=== PATIENT | female | born 1960 | race Caucasian/White ===

== ENCOUNTER 2019-08-21 18:55 | Emergency (ER) | payer SELFPAY ==
--- NOTE | 2019-08-21 20:16 | RAD REPORT ---
EXAM DESCRIPTION: CT - Abdomen Pelvis Wo Contrast - 08/21/2019 8:06 pm CLINICAL HISTORY: left lateral labial (Hernia?) pain COMPARISON: No comparisons None. TECHNIQUE: Axial [address] imaging of the abdomen and pelvis was performed without IV contrast. No IV contrast was given because of allergy, abnormal renal function, patient refusal or physician re quest. No oral contrast. All CT scans are performed using dose optimization technique as appropriate and may include automated exposure control or mA/KV adjustment according to patient size. FINDINGS: No suspicious findings in the lung bases. The liver, spleen and pancreas show no suspicious findings on non-contrast imaging. Small gallstones are present within a contracted gallbladder. No biliary tree dilatation. No hydronephrosis or suspicious renal mass. No significant adrenal finding. Isodense renal masses an d pyelonephritis cannot be excluded in the absence of IV contrast. Partially filled urinary bladder s hows no suspicious finding. Uterus and ovaries show no suspicious findings for age. No pelvic floor laxity suspected. Vaginal vault is grossly normal on CT imaging. CT is limited along the pelvic floor. No inguinal hernia. No dilated bowel loops or bowel wall thickening. No active GI process identifiable. No free air, free fluid or inflammatory stranding. No hernia, mass or bulky lymphadenopathy. No suspicious bony findings. IMPRESSION: No pelvic floor laxity or hernia along the perineum or vaginal vault. No inguinal hernia . No acute GI process seen. No acute process suspected. Isodense masses and pyelonephritis are not e xcluded on noncontrast imaging. Cholelithiasis. Full assessment is limited is the absence of IV contrast.
--- NOTE | 2019-08-21 21:02 | EDPHYS ---
Physician Documentation [facility] Name: Maria M Main Age: 58 yrs Sex: Female : 1960 Arrival Date: 08/21/2019 Time: 19:03 Bed 26 Private MD: ED Physician Beltran Acosta HPI: 08/21 20:49 This 58 yrs old Female presents to ER via EMS with complaints of left kdr groin/labia pain. 20:49 The patient states that she has had a hernia since she was 15 y/o. She states that she kdr has had recent pain and bleeding in her left groin. Onset: The symptoms/episode began/occurred at an unknown time. Severity of symptoms: At their worst the symptoms were mild in the emergency department the symptoms have resolved. The patient has experienced similar episodes in the past, chronically. The patient has not recently seen a physician. Historical: - Allergies: 19:06 No Known Allergies; mg2 - Home Meds: 19:06 None [Active]; mg2 - PMHx: 19:06 Hernia; mg2 - PSHx: 19:06 None; mg2 - Immunization history:: Flu vaccine is not up to date. - Social history:: Smoking status: Patient uses tobacco products, 7 sticks a day, Patient uses alcohol, occasionally. Patient/guardian denies using street drugs, IV drugs. - Ebola Screening: : No symptoms or risks identified at this time. ROS: 20:49 Constitutional: Negative for fever, chills, and weight loss, Eyes: Negative for injury, kdr pain, redness, and discharge, ENT: Negative for injury, pain, and discharge, Neck: Negative for injury, pain, and swelling, Cardiovascular: Negative for chest pain, palpitations, and edema, Respiratory: Negative for shortness of breath, cough, wheezing, and pleuritic chest pain, Back: Negative for injury and pain, : Negative for injury, bleeding, discharge, and swelling, MS/Extremity: Negative for injury and deformity, Skin: Negative for injury, rash, and discoloration, Neuro: Negative for headache, weakness, numbness, tingling, and seizure activity. Psych: Negative for depression, anxiety, suicide ideation, homicidal ideation, and hallucinations, Allergy/Immunology: Negative for hives, rash, and allergies, Endocrine: Negative for neck swelling, polydipsia, polyuria, polyphagia, and marked weight changes, Hematologic/Lymphatic: Negative for swollen nodes, abnormal bleeding, and unusual bruising. 20:49 Abdomen/GI: Positive for left groin/labial pain . Exam: 20:49 Constitutional: This is a well developed, well nourished patient who is awake, alert, kdr and in no acute distress. Head/Face: Normocephalic, atraumatic. Eyes: Pupils equal round and reactive to light, extra-ocular motions intact. Lids and lashes normal. Conjunctiva and sclera are non-icteric and not injected. Cornea within normal limits. Periorbital areas with no swelling, redness, or edema. Neck: Trachea midline, no thyromegaly or masses palpated, and no cervical lymphadenopathy. Supple, full range of motion without nuchal rigidity, or vertebral point tenderness. No Meningismus. Chest/axilla: Normal chest wall appearance and motion. Nontender with no deformity. No lesions are appreciated. Cardiovascular: Regular rate and rhythm with a normal S1 and S2. No gallops, murmurs, or rubs. Normal PMI, no JVD. No pulse deficits. Respiratory: Lungs have equal breath sounds bilaterally, clear to auscultation and percussion. No rales, rhonchi or wheezes noted. No increased work of breathing, no retractions or nasal flaring. Abdomen/GI: Soft, non-tender, with normal bowel sounds. No distension or tympany. No guarding or rebound. No evidence of tenderness throughout. Back: No spinal tenderness. No costovertebral tenderness. Full range of motion. Female : Normal external genitalia. Skin: Warm, dry with normal turgor. Normal color with no rashes, no lesions, and no evidence of cellulitis. MS/ Extremity: Pulses equal, no cyanosis. Neurovascular intact. Full, normal range of motion. Neuro: Awake and alert, GCS 15, oriented to person, place, time, and situation. Cranial nerves II-XII grossly intact. Motor strength 5/5 in all extremities. Sensory grossly intact. Cerebellar exam normal. Normal gait. Psych: Awake, alert, with orientation to person, place and time. Behavior, mood, and affect are within normal limits. Vital Signs: 19:05 BP 134 / 89; Pulse 88; Resp 18; Temp 98.3; Pulse Ox 100% on R/A; Height 5 ft. 3 in. mg2 (160.02 cm); 21:21 BP 131 / 86; Pulse 87; Resp 17; Pulse Ox 100% on R/A; rv MDM: 20:49 Data reviewed: vital signs, nurses notes, radiologic studies. Counseling: I had a kdr detailed discussion with the patient and/or guardian regarding: the historical points, exam findings, and any diagnostic results supporting the discharge/admit diagnosis, radiology results, the need for outpatient follow up. 21:01 Patient medically screened. kdr 08/21 19:43 Order name: CT Abd/Pelvis - Without Contrast; Complete Time: 20:48 kdr Administered Medications: No medications were administered Disposition: 08/21/19 21:01 Discharged to Home. Impression: Left groin pain. - Condition is Stable. - Discharge Instructions: Musculoskeletal Pain. - Medication Reconciliation Form, Thank You Letter form. - Follow up: Private Physician; When: 2 - 3 days; Reason: If symptoms return, Further diagnostic work-up, Recheck today's complaints, Continuance of care, Re-evaluation by your physician. Signatures: Dispatcher [employer] EDMS Beltran Acosta MD MD kdr Jorge Alejandra, CLEVE RN mg2 Dionisio Buchanan RN RN rv Corrections: (The following items were deleted from the chart) 21:21 21:01 08/21/2019 21:01 Discharged to Home. Impression: Left groin pain. Condition is rv Stable. Forms are Medication Reconciliation Form, Thank You Letter, Antibiotic Education, Prescription Opioid Use. Follow up: Private Physician; When: 2 - 3 days; Reason: If symptoms return, Further diagnostic work-up, Recheck today's complaints, Continuance of care, Re-evaluation by your physician. kdr
--- NOTE | 2019-08-21 21:02 | ER ---
Nurse's Notes [facility] Name: Maria M Main Age: 58 yrs Sex: Female : 1960 Arrival Date: 08/21/2019 Time: 19:03 Bed 26 Private MD: Diagnosis: Left groin pain Presentation: 08/21 19:03 Presenting complaint: EMS states: patient lives in [facility], she is here for her mg2 left inguinal hernia that hurts a lot. Transition of care: [facility]. Onset of symptoms was July 2019. Risk Assessment: Do you want to hurt yourself or someone else? Patient reports no desire to harm self or others. Initial Sepsis Screen: Does the patient meet any 2 criteria? No. Patient's initial sepsis screen is negative. Does the patient have a suspected source of infection? No. Patient's initial sepsis screen is negative. Care prior to arrival: None. 19:03 Method Of Arrival: EMS: [facility] mg2 19:03 Acuity: TYLER 4 mg2 Historical: - Allergies: 19:06 No Known Allergies; mg2 - Home Meds: 19:06 None [Active]; mg2 - PMHx: 19:06 Hernia; mg2 - PSHx: 19:06 None; mg2 - Immunization history:: Flu vaccine is not up to date. - Social history:: Smoking status: Patient uses tobacco products, 7 sticks a day, Patient uses alcohol, occasionally. Patient/guardian denies using street drugs, IV drugs. - Ebola Screening: : No symptoms or risks identified at this time. Screenin:55 Abuse screen: Denies threats or abuse. Denies injuries from another. Nutritional mg2 screening: No deficits noted. Tuberculosis screening: No symptoms or risk factors identified. Fall Risk Gait- Weak (10 pts.). Assessment: 19:53 General: Appears in no apparent distress. comfortable, Behavior is calm, cooperative. mg2 Pain: Complains of pain in left inguinal area. Neuro: Level of Consciousness is awake, alert, obeys commands, Oriented to person, place, time, situation. Cardiovascular: Capillary refill < 3 seconds Patient's skin is warm and dry. Respiratory: Airway is patent Respiratory effort is even, unlabored, Respiratory pattern is regular, symmetrical. GI: No deficits noted. : Reports pain in left inguinal area. EENT: No signs and/or symptoms were reported regarding the EENT system. Derm: Skin is intact, is healthy with good turgor, Skin is pink, warm \T\ dry. normal. Musculoskeletal: Circulation, motion, and sensation intact. Capillary refill < 3 seconds. Vital Signs: 19:05 BP 134 / 89; Pulse 88; Resp 18; Temp 98.3; Pulse Ox 100% on R/A; Height 5 ft. 3 in. mg2 (160.02 cm); 21:21 BP 131 / 86; Pulse 87; Resp 17; Pulse Ox 100% on R/A; rv ED Course: 19:03 Patient arrived in ED. mg2 19:03 Jorge Alejandra, RN is Primary Nurse. mg2 19:05 Beltran Acosta MD is Attending Physician. kdr 19:05 Triage completed. mg2 19:07 Arm band placed on. mg2 19:55 Patient has correct armband on for positive identification. Door closed. Warm blanket mg2 given. 19:55 No provider procedures requiring assistance completed. Patient did not have IV access mg2 during this emergency room visit. 20:06 CT Abd/Pelvis - Without Contrast In Process Unspecified. EDMS Administered Medications: No medications were administered Outcome: 21:01 Discharge ordered by . kdr 21:20 Discharged to home ambulatory. rv 21:20 Condition: good 21:20 Discharge instructions given to patient, Instructed on discharge instructions, follow up and referral plans. Demonstrated understanding of instructions, follow-up care. 21:21 Patient left the ED. rv Signatures: Dispatcher [employer] EDMS Beltran Acosta MD MD [facility] Jorge Alejandra, CLEVE [facility] Dionisio Buchanan RN RN rv
[2019-08-22 00:37] VITALS: TEMP 98.3; O2SAT 100
[2019-08-22 00:38] VITALS: BP 131/86
== END 2019-08-21 21:21 | disposition home or self-care (01) ==
LOC: ER 18:55
DX: R10.32 Left lower quadrant pain (principal); Z72.0 Tobacco use
CPT/HCPCS: 74176; 99283

== ENCOUNTER 2019-08-22 12:17 | Emergency (ER) | payer SELFPAY ==
--- NOTE | 2019-08-22 14:44 | RAD REPORT ---
EXAM DESCRIPTION: RAD - Clavicle Left - 08/22/2019 2:15 pm CLINICAL HISTORY: PAIN COMPARISON: No comparisons FINDINGS: Old ununited fracture of the distal left clavicle is seen. No acute fracture or dislocatio n evident.
--- NOTE | 2019-08-22 23:40 | EDPHYS ---
Physician Documentation [facility] Name: Maria M Main Age: 58 yrs Sex: Female : 1960 Arrival Date: 08/22/2019 Time: 12:21 Bed 26 Private MD: ED Physician Rayne Rodriguez HPI: 08/22 13:00 This 58 yrs old Female presents to ER via Ambulatory with complaints of jmm Shoulder Pain. 13:00 The patient or guardian complains of pain. Onset: The symptoms/episode began/occurred jmm today. Modifying factors: the symptoms are alleviated by nothing. The symptoms are aggravated by movement. Associated signs and symptoms: Pertinent negatives: chest pain. This is a 58 year old female with no chronic medical conditions that presents to the ED with complaints of left clavicle pain. Patient states she fractured it 5 years ago. Denies new injury. . Historical: - Allergies: 12:28 No Known Allergies; aa5 - PMHx: 12:28 Hernia; aa5 - PSHx: 12:28 None; aa5 - Immunization history:: Adult Immunizations unknown. - Social history:: Smoking status: Patient uses tobacco products, smokes one-half pack cigarettes per day. - Ebola Screening: : No symptoms or risks identified at this time. ROS: 13:00 Constitutional: Negative for fever, chills, and weight loss, Cardiovascular: Negative jmm for chest pain, palpitations, and edema, Respiratory: Negative for shortness of breath, cough, wheezing, and pleuritic chest pain. 13:00 MS/extremity: Positive for pain. 13:00 All other systems are negative. Exam: 13:00 Constitutional: This is a well developed, well nourished patient who is awake, alert, jmm and in no acute distress. Head/Face: atraumatic. Eyes: EOMI, no conjunctival erythema appreciated ENT: Moist Mucus Membranes Neck: Trachea midline, Supple 13:00 Cardiovascular: Regular rate and rhythm. No edema appreciated Respiratory: Normal respirations, no respiratory distress appreciated Abdomen/GI: Non distended, soft Back: Normal ROM Skin: General appearance color normal MS/ Extremity: Moves all extremities, no obvious deformities appreciated, no edema noted to the lower extremities Neuro: Awake and alert, normal gait Psych: Behavior is normal, Mood is normal, Patient is cooperative and pleasant 13:00 Chest/axilla: left distal clavicular pain on palpation. Vital Signs: 12:28 BP 137 / 92; Pulse 84; Resp 16 S; Temp 97.7(O); Pulse Ox 97% on R/A; Pain 5/10; aa5 MDM: 12:39 Patient medically screened. [facility] 14:08 Data reviewed: vital signs, nurses notes. Counseling: I had a detailed discussion with gold the patient and/or guardian regarding: the historical points, exam findings, and any diagnostic results supporting the discharge/admit diagnosis, radiology results, the need for outpatient follow up, to return to the emergency department if symptoms worsen or persist or if there are any questions or concerns that arise at home. ED course: injury appear chronic. patient advised to follow up with pcp for further evaluation. patient understood and agrees with the plan of care. . Administered Medications: No medications were administered Disposition: 15:51 Co-signature as Attending Physician, Rayne Rodriguez MD. ma2 Disposition: 08/22/19 14:09 Discharged to Home. Impression: Clavicular Pain. - Condition is Stable. - Discharge Instructions: Clavicle Fracture. - Medication Reconciliation Form, Thank You Letter, Antibiotic Education, Prescription Opioid Use form. - Follow up: Private Physician; When: 2 - 3 days; Reason: Recheck today's complaints, Continuance of care, Re-evaluation by your physician. Signatures: Juanita Thomas RN RN aj1 Ash Nieves PA PA jmm Calderon, Audri, RN RN aa5 Rayne Rodriguez MD MD ma2 Corrections: (The following items were deleted from the chart) 14:27 14:09 08/22/2019 14:09 Discharged to Home. Impression: Clavicular Pain. Condition is aj1 Stable. Forms are Medication Reconciliation Form, Thank You Letter, Antibiotic Education, Prescription Opioid Use. Follow up: Private Physician; When: 2 - 3 days; Reason: Recheck today's complaints, Continuance of care, Re-evaluation by your physician. jamie
--- NOTE | 2019-08-22 23:41 | ER ---
Nurse's Notes [facility] Name: Maria M Main Age: 58 yrs Sex: Female : 1960 Arrival Date: 08/22/2019 Time: 12:21 Bed 26 Private MD: Diagnosis: Clavicular Pain Presentation: 08/22 12:26 Presenting complaint: Patient states: "my left collar bone hurts". Pt was found by aa5 information security engineer wandering in the hospital property and pt decided to come to the ER. Pt reports being homeless, pt reports being "[facility] Transition of care: patient was not received from another setting of care. Onset of symptoms was July 2019. Risk Assessment: Do you want to hurt yourself or someone else? Patient reports no desire to harm self or others. Initial Sepsis Screen: Does the patient meet any 2 criteria? No. Patient's initial sepsis screen is negative. Does the patient have a suspected source of infection? No. Patient's initial sepsis screen is negative. Care prior to arrival: None. 12:26 Acuity: TYLER 4 aa5 12:26 Method Of Arrival: Ambulatory aa5 Historical: - Allergies: 12:28 No Known Allergies; aa5 - PMHx: 12:28 Hernia; aa5 - PSHx: 12:28 None; aa5 - Immunization history:: Adult Immunizations unknown. - Social history:: Smoking status: Patient uses tobacco products, smokes one-half pack cigarettes per day. - Ebola Screening: : No symptoms or risks identified at this time. Screenin:06 Abuse screen: Denies threats or abuse. Denies injuries from another. Nutritional aj1 screening: No deficits noted. Tuberculosis screening: No symptoms or risk factors identified. 14:02 Fall Risk None identified. aj1 Assessment: 13:06 General: Appears in no apparent distress. comfortable, Behavior is calm, cooperative, aj1 appropriate for age. Pain: Complains of pain in left clavicle. Neuro: Level of Consciousness is awake, alert, obeys commands. Cardiovascular: Patient's skin is warm and dry. Respiratory: Airway is patent Respiratory effort is even, unlabored, Respiratory pattern is regular, symmetrical. GI: No signs and/or symptoms were reported involving the gastrointestinal system. : No signs and/or symptoms were reported regarding the genitourinary system. EENT: No signs and/or symptoms were reported regarding the EENT system. Derm: No signs and/or symptoms reported regarding the dermatologic system. Skin is pink, warm \\T\\ dry. normal. Musculoskeletal: No signs and/or symptoms reported regarding the musculoskeletal system. Circulation, motion, and sensation intact. 14:01 Reassessment: Patient appears in no apparent distress at this time. No changes from aj1 previously documented assessment. Patient and/or family updated on plan of care and expected duration. Pain level reassessed. Patient is alert, oriented x 3, equal unlabored respirations, skin warm/dry/pink. Vital Signs: 12:28 BP 137 / 92; Pulse 84; Resp 16 S; Temp 97.7(O); Pulse Ox 97% on R/A; Pain 5/10; aa5 ED Course: 12:21 Patient arrived in ED. aa5 12:25 Arm band placed on. aa5 12:27 Triage completed. aa5 12:29 Juanita Thomas RN is Primary Nurse. aj1 12:29 Ash Nieves PA is PHCP. [facility] 12:29 Rayne Rodriguez MD is Attending Physician. [facility] 13:06 Patient has correct armband on for positive identification. Bed in low position. Call aj1 light in reach. 13:06 No provider procedures requiring assistance completed. aj1 14:27 Patient did not have IV access during this emergency room visit. aj1 Administered Medications: No medications were administered Outcome: 14:09 [address] . [facility] 14:27 Discharged to home ambulatory. aj1 14:27 Condition: good 14:27 Discharge instructions given to patient, Instructed on discharge instructions, follow up and referral plans. Demonstrated understanding of instructions, follow-up care. 14:27 Patient left the ED. aj1 Signatures: Juanita Thomas RN RN aj1 Ash Nieves PA PA [facility] Glo Pederson RN RN aa5 Corrections: (The following items were deleted from the chart) 12:29 12:28 BP 137 / 92; Pulse 84bpm; Resp 16bpm; Spontaneous; Pulse Ox 97% RA; Temp 97.7F aa5 Oral; aa5
== END 2019-08-22 14:27 | disposition home or self-care (01) ==
LOC: ER 12:17
DX: M25.512 Pain in left shoulder (principal); F17.210 Nicotine dependence, cigarettes, uncomplicated
CPT/HCPCS: 99281

== ENCOUNTER 2019-09-09 23:33 | Emergency (ER) | payer SELFPAY ==
[2019-09-10] MEDS ORDERED: NA CHLORIDE 0.9% 1,000 ML ONE (01:06)
[2019-09-10 01:18] LABS: Absolute Lymphocytes (CBC) 0.8 K/uL (0.7-4.9); Basophils % 0.1 % (0-1.3); Hematocrit 38.8 % (36.0-45.0); Lymphocytes % 8.3 % (15.3-44.8); MPV 8.1 fL (7.6-11.3); RBC Red Blood Cell Count 3.97 M/uL (3.86-4.86)
[2019-09-10 01:29] LABS: Albumin 3.3 g/dL (3.4-5.0); Bilirubin Direct 0.3 mg/dL (0-0.2); Potassium 3.3 mmol/L (3.5-5.1); Protein, Total 8.1 g/dL (6.4-8.2)
[2019-09-10 01:49] LABS: Blood Morphology Comment NOT SEEN (NOT SEEN); Platelet Estimate ADEQ
--- NOTE | 2019-09-10 02:43 | EDPHYS ---
Physician Documentation [facility] Name: Maria M Yang Age: 58 yrs Sex: Female : 1960 Arrival Date: 09/09/2019 Time: 23:34 Bed 23 Private MD: ED Physician Nick Hammer HPI: 09/10 01:23 This 58 yrs old Female presents to ER via EMS with complaints of Left groin pm1 pain. 01:23 The patient presents with abdominal pain Left groin pain. Onset: The symptoms/episode pm1 began/occurred Reports left groin hernia since the age of 15 and believes that her abdominal pain today is related to it. The symptoms do not radiate. Associated signs and symptoms: Pertinent positives: diarrhea, Pertinent negatives: nausea and vomiting, chest pain, dysuria, fever, shortness of breath. The symptoms are described as sharp. Modifying factors: The symptoms are alleviated by nothing, the symptoms are aggravated by nothing. The patient has been recently seen at the [facility] Emergency Department, a couple of weeks ago, for similar complaints CT scan was performed. Historical: - Allergies: 09/09 23:53 No Known Allergies; iw - Home Meds: 23:53 None [Active]; iw - PMHx: 23:53 Hernia; iw - PSHx: 23:53 None; iw - Immunization history:: unable to assess. - Ebola Screening: : Patient negative for fever greater than or equal to 101.5 degrees Fahrenheit, and additional compatible Ebola Virus Disease symptoms Patient denies exposure to infectious person Patient denies travel to an Ebola-affected area in the 21 days before illness onset No symptoms or risks identified at this time. - Social history:: Smoking status: Patient uses tobacco products, unknown amount daily smoker. ROS: 09/10 01:23 Constitutional: Negative for fever, chills, and weight loss, Eyes: Negative for injury, pm1 pain, redness, and discharge, ENT: Negative for injury, pain, and discharge, Neck: Negative for injury, pain, and swelling, Cardiovascular: Negative for chest pain, palpitations, and edema, Respiratory: Negative for shortness of breath, cough, wheezing, and pleuritic chest pain. Back: Negative for injury and pain, : Negative for injury, bleeding, discharge, and swelling, MS/Extremity: Negative for injury and deformity, Skin: Negative for injury, rash, and discoloration, Neuro: Negative for headache, weakness, numbness, tingling, and seizure. Abdomen/GI: Positive for abdominal pain, diarrhea, of the left groin, Negative for nausea and vomiting, constipation. Exam: : Constitutional: This is a well developed, well nourished patient who is awake, alert, pm1 and in no acute distress. Head/Face: Normocephalic, atraumatic. Eyes: Pupils equal round and reactive to light, extra-ocular motions intact. Lids and lashes normal. Conjunctiva and sclera are non-icteric and not injected. Cornea within normal limits. Periorbital areas with no swelling, redness, or edema. ENT: Nares patent. No nasal discharge, no septal abnormalities noted. Tympanic membranes are normal and external auditory canals are clear. Oropharynx with no redness, swelling, or masses, exudates, or evidence of obstruction, uvula midline. Mucous membranes moist. Neck: Trachea midline, no thyromegaly or masses palpated, and no cervical lymphadenopathy. Supple, full range of motion without nuchal rigidity, or vertebral point tenderness. No Meningismus. Chest/axilla: Normal chest wall appearance and motion. Nontender with no deformity. No lesions are appreciated. Cardiovascular: Regular rate and rhythm with a normal S1 and S2. No gallops, murmurs, or rubs. Normal PMI, no JVD. No pulse deficits. Respiratory: Lungs have equal breath sounds bilaterally, clear to auscultation and percussion. No rales, rhonchi or wheezes noted. No increased work of breathing, no retractions or nasal flaring. Abdomen/GI: Soft, non-tender, with normal bowel sounds. No distension or tympany. No guarding or rebound. No evidence of tenderness throughout. Back: No spinal tenderness. No costovertebral tenderness. Full range of motion. : Skin: Appearance: normal except for affected area, consistent with diaper rash to groin area. :23 Neuro: Orientation: is normal, Motor: is normal, moves all fours. Vital Signs: 09/09 23:54 BP 164 / 100; Pulse 118; Resp 20 S; Pulse Ox 97% on R/A; iw 09/10 01:18 BP 129 / 87; Pulse 105; Resp 20 S; Temp 98.0; Pulse Ox 98% on R/A; iw 03:30 BP 108 / 91; Pulse 108 RA; Resp 18; Pulse Ox 98% on R/A; ra1 MDM: 09/09 23:37 Patient medically screened. [facility] 09/10 01:27 Data reviewed: vital signs. Data interpreted: Pulse oximetry: on room air is 98 %. pm1 Interpretation: normal. 02:42 Counseling: I had a detailed discussion with the patient and/or guardian regarding: the pm1 historical points, exam findings, and any diagnostic results supporting the discharge/admit diagnosis, lab results, radiology results, the need for outpatient follow up, to return to the emergency department if symptoms worsen or persist or if there are any questions or concerns that arise at home. 09/09 23:50 Order name: Basic Metabolic Panel pm1 09/09 23:50 Order name: CBC with Diff pm1 09/09 23:50 Order name: Creatinine for Radiology; Complete Time: 01:30 pm1 09/09 23:50 Order name: Hepatic Function; Complete Time: 01:30 pm1 09/09 23:50 Order name: Lipase; Complete Time: 01:30 pm1 09/09 23:51 Order name: Basic Metabolic Panel; Complete Time: 01:30 EDMS 09/09 23:50 Order name: IV Saline Lock; Complete Time: 01:12 pm1 09/09 23:50 Order name: Labs collected and sent; Complete Time: 01:13 pm1 09/09 23:50 Order name: CT Abd/Pelvis - IV Contrast Only pm1 09/09 23:51 Order name: CBC with Automated Diff; Complete Time: 01:50 EDMS 09/10 01:20 Order name: Manual Differential; Complete Time: 01:50 EDMS Administered Medications: Discontinued: NS 0.9% 1000 ml IV at 1000 ml once 01:19 Drug: NS 0.9% 1000 ml Route: IV; Rate: 1000 ml; Site: left antecubital; iw Disposition: 09/10/19 02:43 Discharged to Home. Impression: Diarrhea, unspecified, Unspecified abdominal pain, Diaper dermatitis. - Condition is Stable. - Discharge Instructions: Abdominal Pain, Adult, Food Choices to Help Relieve Diarrhea, Adult, Diaper Rash, Diarrhea, Adult. - Prescriptions for Bentyl 20 mg Oral Tablet - take 1 tablet by ORAL route every 6 hours As needed; 20 tablet. Flagyl 500 mg Oral Tablet - take 1 tablet by ORAL route every 8 hours for 10 days; 30 tablet. Bactrim DS 800- 160 mg Oral Tablet - take 1 tablet by ORAL route every 12 hours for 10 days; 20 tablet. Clotrimazole 1 % Topical Cream - Apply to affected area 1 application by TOPICAL route every 12 hours; 30 gram. - Medication Reconciliation Form, Thank You Letter, Antibiotic Education, Prescription Opioid Use form. - Follow up: Emergency Department; When: As needed; Reason: Worsening of condition. Follow up: Private Physician; When: 2 - 3 days; Reason: Recheck today's complaints, Continuance of care, Re-evaluation by your physician. - Problem is new. - Symptoms have improved. Addendum: 09/11/2019 08:15 Co-signature as Attending Physician, Nick Hammer MD I agree with the assessment and c menjivar plan of care. Signatures: Dispatcher [employer] EDChina Gordillo RN RN aa1 Nick Hammer MD MD cha Williams, Irene, RN RN iw Garcia Salcido, ZACH LOAN EXPEDITOR pm1 Alexander Bobby RN RN ra1 Corrections: (The following items were deleted from the chart) 09/10 02:43 02:43 09/10/2019 02:43 Discharged to Home. Impression: Diarrhea, unspecified. Condition pm1 is Stable. Forms are Medication Reconciliation Form, Thank You Letter, Antibiotic Education, Prescription Opioid Use. Follow up: Emergency Department; When: As needed; Reason: Worsening of condition. Follow up: Private Physician; When: 2 - 3 days; Reason: Recheck today's complaints, Continuance of care, Re-evaluation by your physician. Problem is new. Symptoms have improved. pm1 02:45 02:43 09/10/2019 02:43 Discharged to Home. Impression: Diarrhea, unspecified; pm1 Unspecified abdominal pain. Condition is Stable. Forms are Medication Reconciliation Form, Thank You Letter, Antibiotic Education, Prescription Opioid Use. Follow up: Emergency Department; When: As needed; Reason: Worsening of condition. Follow up: Private Physician; When: 2 - 3 days; Reason: Recheck today's complaints, Continuance of care, Re-evaluation by your physician. Problem is new. Symptoms have improved. pm1 04:17 02:45 09/10/2019 02:43 Discharged to Home. Impression: Diarrhea, unspecified; aa1 Unspecified abdominal pain; Diaper dermatitis. Condition is Stable. Discharge Instructions: Abdominal Pain, Adult, Food Choices to Help Relieve Diarrhea, Adult, Diarrhea, Adult. Prescriptions for Bentyl 20 mg Oral Tablet - take 1 tablet by ORAL route every 6 hours As needed; 20 tablet. and Forms are Medication Reconciliation Form, Thank You Letter, Antibiotic Education, Prescription Opioid Use. Follow up: Emergency Department; When: As needed; Reason: Worsening of condition. Follow up: Private Physician; When: 2 - 3 days; Reason: Recheck today's complaints, Continuance of care, Re-evaluation by your physician. Problem is new. Symptoms have improved. pm1
--- NOTE | 2019-09-10 02:43 | ER ---
Nurse's Notes [facility] Name: Maria M Yang Age: 58 yrs Sex: Female : 1960 Arrival Date: 09/09/2019 Time: 23:34 Bed 23 Private MD: Diagnosis: Diarrhea, unspecified;Unspecified abdominal pain;Diaper dermatitis Presentation: 09/09 23:49 Presenting complaint: Patient states: has an abdominal hernia that is hurting also has iw hx of a broken collar bone that is hurting her, also has a cough and defecated herself. Transition of care: patient was not received from another setting of care. Onset of symptoms was September 09, 2019. Risk Assessment: Do you want to hurt yourself or someone else? Patient reports no desire to harm self or others. Initial Sepsis Screen: Does the patient meet any 2 criteria? No. Patient's initial sepsis screen is negative. Does the patient have a suspected source of infection? No. Patient's initial sepsis screen is negative. Care prior to arrival: None. 23:49 Method Of Arrival: EMS: [facility] iw 23:49 Acuity: TYLER 3 iw Historical: - Allergies: 23:53 No Known Allergies; iw - Home Meds: 23:53 None [Active]; iw - PMHx: 23:53 Hernia; iw - PSHx: 23:53 None; iw - Immunization history:: unable to assess. - Ebola Screening: : Patient negative for fever greater than or equal to 101.5 degrees Fahrenheit, and additional compatible Ebola Virus Disease symptoms Patient denies exposure to infectious person Patient denies travel to an Ebola-affected area in the 21 days before illness onset No symptoms or risks identified at this time. - Social history:: Smoking status: Patient uses tobacco products, unknown amount daily smoker. Screenin/12 01:02 Abuse screen: Denies threats or abuse. Denies injuries from another. Nutritional iw screening: No deficits noted. Tuberculosis screening: No symptoms or risk factors identified. Fall Risk Fall in past 12 months (25 points). IV access (20 points). Assessment: 00:30 Reassessment: Patient appears in no apparent distress at this time. virgilio Monroy at iw bedside to clean patient, clothes and linens changed, pt incontinent of stool, pt has rash to bottom and genital area, states she has had diarrhea. 01:02 Reassessment: Cleve Atkinson at bedside for IV insertion, successful. iw 02:05 Reassessment: Patient appears in no apparent distress at this time. Patient and/or ra1 family updated on plan of care and expected duration. Pain level reassessed. Patient is alert, oriented x 3, equal unlabored respirations, skin warm/dry/pink. pt returned from CT, verbalized complaints of chronic pain, states "it hurts all over", pt repositioned, lights dimmed, blanket provided, doors closed. Pain: Complains of pain in pt describes pain all over. GI: Bowel sounds. 03:00 Reassessment: Patient appears in no apparent distress at this time. No changes from ra1 previously documented assessment. Patient and/or family updated on plan of care and expected duration. Pain level reassessed. Patient is alert, oriented x 3, equal unlabored respirations, skin warm/dry/pink. lying in bed, snoring, when awaken by nurse patient complains of chronic all over body pains. GI: Bowel sounds present X 4 quads. Abd is soft and non tender X 4 quads. Vital Signs: 09/09 23:54 BP 164 / 100; Pulse 118; Resp 20 S; Pulse Ox 97% on R/A; iw 09/10 01:18 BP 129 / 87; Pulse 105; Resp 20 S; Temp 98.0; Pulse Ox 98% on R/A; iw 03:30 BP 108 / 91; Pulse 108 RA; Resp 18; Pulse Ox 98% on R/A; ra1 ED Course: 09/09 23:34 Patient arrived in ED. ds1 23:37 Garcia Salcido NP is PHCP. pm1 23:37 Nick Hammer MD is Attending Physician. pm1 23:49 Celia Johnson, CLEVE is Primary Nurse. iw 23:52 Triage completed. iw 09/10 00:55 Arm band placed on. iw 00:55 Missed attempt(s): 22 gauge in right forearm. Bleeding controlled, band aid applied, aa1 catheter tip intact. 01:00 Initial lab(s) drawn, by fl, sent to lab. Inserted saline lock: 22 gauge in left aa1 antecubital area, using aseptic technique. Blood collected. 01:05 Radiology exam delayed due to lab results not completed at this time. (BUN/Creatinine). kw1 02:04 CT Abd/Pelvis - IV Contrast Only In Process Unspecified. EDMS 03:00 Patient has correct armband on for positive identification. ra1 03:00 Bed in low position. Side rails up X2. ra1 03:00 No provider procedures requiring assistance completed. ra1 03:35 IV discontinued, intact, bleeding controlled, No redness/swelling at site. Pressure ra1 dressing applied. Administered Medications: Discontinued: NS 0.9% 1000 ml IV at 1000 ml once 01:19 Drug: NS 0.9% 1000 ml Route: IV; Rate: 1000 ml; Site: left antecubital; iw Outcome: 02:43 Discharge ordered by MD. pm1 03:35 Discharged to patient verbalized she does not have any friends or family locally, her ra1 family lives in [place], patient discharged to lobby to wait on local transit bus 04:17 Patient left the ED. aa1 Signatures: Dispatcher [employer] EDChina Gordillo RN RN aa1 Zeina Reeder ds1 Celia Johnson RN RN Garcia Salcido, INSTRUMENT CHECKER INSTRUMENT CHECKER pm1 Rayna Silva kw1 Alexander Bobby, CLEVE RN ra1 Corrections: (The following items were deleted from the chart) 09/09 23:55 23:54 BP 164 / 100; Pulse 121bpm; Resp 20bpm; Spontaneous; Pulse Ox 97% RA; iw iw 09/10 01:20 01:18 BP 129 / 87; Pulse 105bpm; Resp 20bpm; Spontaneous; Pulse Ox 98% RA; iw iw
[2019-09-10 04:29] VITALS: TEMP 98; O2SAT 98
[2019-09-10 04:30] VITALS: BP 108/91
--- NOTE | 2019-09-11 11:01 | RAD REPORT ---
EXAM DESCRIPTION: Abdomen Pelvis W Contrast CLINICAL HISTORY: Left groin pain COMPARISON: CT abdomen and pelvis without contrast 08/21/2019. TECHNIQUE: Axial CT imaging of the abdomen and pelvis performed with intravenous contrast. Reformatt ed coronal and sagittal images reviewed. A dose reduction technique was utilized with automated exposure control according to patient size. FINDINGS: Clear lung bases. Heart is normal in size. Liver is normal in size and contour. Mild fatty liver infiltration. No mass or biliary dilatation. Ga llbladder contains dependent stones. No evidence of cholecystitis. The common bile duct is dilated to 8 mm with no obstructing stone. The spleen contains a after calcification. Normal pancreas. Normal adrenal glands and kidneys. Modera te aorta atherosclerosis. No aneurysm. Normal caliber inferior vena cava. Mesenteric vessels are well -opacified. No adenopathy. Unremarkable stomach. The small bowel loops are normal in caliber. Appendix is normal in the right he mipelvis. There is thickening of the ascending colon diffusely with mild pericolonic edema. Minimal s igmoid colon diverticulosis. No diverticulitis. No mesenteric adenopathy. No ascites or free air. Unremarkable bladder. Normal uterus. Multilevel endplate Schmorl's nodes in the lumbar spine. Mild di ffuse disc bulge at all levels from L2 to S1. No subluxation. Intact bony pelvis. Normal hips. IMPRESSION: 1. Mild colitis of the ascending colon. 2. Mild sigmoid diverticulosis without diverticulitis. 3. Mild fatty liver infiltration. 4. Cholelithiasis without cholecystitis. Mild common bile duct dilatation with no obstructing etiolog y. 5. Multilevel mild lumbar diffuse disc bulges.. Electronically signed by: Eliza Stubbs DO 09/10/2019 2:34 AM SECTION SUPERVISOR Due to temporary technical issues with the PACS/Fluency reporting system, reports are being signed by the in house radiologist as a courtesy to ensure prompt reporting. The interpreting radiologist is f ully responsible for the content of the report.
== END 2019-09-10 04:17 | disposition home or self-care (01) ==
LOC: ER 23:33
DX: R19.7 Diarrhea, unspecified (principal); L22 Diaper dermatitis; Z72.0 Tobacco use
CPT/HCPCS: 36415; 74177; 80048; 80076; 83690; 85025; 99284; J7030; Q9966

== ENCOUNTER 2019-09-10 09:01 | Emergency (ER) | payer SELFPAY ==
--- NOTE | 2019-09-10 10:34 | RAD REPORT ---
EXAM DESCRIPTION: RAD - Chest Single View - 09/10/2019 9:58 am CLINICAL HISTORY: CHEST PAIN Chest pain. COMPARISON: Abdomen Pelvis W Contrast dated 09/10/2019 FINDINGS: Portable technique limits examination quality. Emphysematous changes are present throughout the lungs. Mild linear opacity in the left lung base may represent atelectasis or mild infiltrate. The heart is normal in size. Old rib fractures are present bilaterally.
--- NOTE | 2019-09-10 11:04 | EDPHYS ---
Physician Documentation [facility] Name: Maria M Yang Age: 58 yrs Sex: Female : 1960 Arrival Date: 09/10/2019 Time: 09:02 Bed 8 Private MD: ED Physician Booker Bloom HPI: 09/10 09:46 This 58 yrs old Female presents to ER via Ambulatory with complaints of Chest rn Pain. 09:46 The patient or guardian reports chest pain that is located primarily in the anterior rn chest wall. Onset: just prior to arrival. The pain does not radiate. The chest pain is described as sharp. Duration: The patient or guardian reports multiple episodes, that are intermittent. Modifying factors: The symptoms are alleviated by nothing. the symptoms are aggravated by palpation of area. Severity of pain: At its worst the pain was moderate in the emergency department the pain is unchanged. The patient has not experienced similar symptoms in the past. 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 Hammer, neg workup, was sleeping in lobby when states chest pain began. Hurts to touch chest, no previous heart problems, + smoker, no trauma. . Historical: - Allergies: 09:16 No Known Allergies; ss - Home Meds: 09:16 None [Active]; ss - PMHx: 09:16 Hernia; ss - PSHx: 09:16 I\T\D; ss - Immunization history:: Adult Immunizations not immunized. - Social history:: Smoking status: Patient uses tobacco products, smokes one pack cigarettes per day. - Ebola Screening: : Patient denies exposure to infectious person Patient denies travel to an Ebola-affected area in the 21 days before illness onset. - Family history:: not pertinent. - Hospitalizations: : No recent hospitalization is reported. ROS: 09:46 Constitutional: Negative for fever, chills, and weight loss, Eyes: Negative for injury, rn pain, redness, and discharge, Neck: Negative for injury, pain, and swelling, Cardiovascular: Negative for palpitations, and edema, Respiratory: Negative for shortness of breath Abdomen/GI: Negative forvomiting, and constipation, MS/Extremity: Negative for injury and deformity, Skin: Negative for injury, rash, and discoloration, Neuro: Negative for headache, weakness, numbness, tingling, and seizure. Exam: 09:46 Constitutional: Thin female, groaning Head/Face: Normocephalic, atraumatic. ENT: rn MMM, no stridor Cardiovascular: Regular rate and rhythm. No pulse deficits. Respiratory: Faint bilateral wheezing. No retractions. No increased work of breathing, no retractions or nasal flaring. Abdomen/GI: soft, non-tender MS/ Extremity: Pulses equal, no cyanosis. Neurovascular intact. Full, normal range of motion. Equal circumference. Neuro: Awake and alert, GCS 15, oriented to person, place, time, and situation. Cranial nerves II-XII grossly intact. Motor strength 5/5 in all extremities. Sensory grossly intact. Cerebellar exam normal. Vital Signs: 09:16 BP 139 / 95; Pulse 86; Resp 20; Temp 97.2(TE); Pulse Ox 98% on R/A; Weight 18.14 kg; ss Pain 8/10; 10:15 BP 134 / 84; Pulse 94; Resp 22; Pulse Ox 98% ; sv 11:09 BP 135 / 86; Pulse 97; Resp 24; Pulse Ox 100% on Nebulizer Mask; sv MDM: 09:23 Patient medically screened. rn 11:01 Differential diagnosis: anxiety, chest wall pain, costochondritis, pleurisy, pneumonia, rn pneumothorax. Data reviewed: vital signs, nurses notes, lab test result(s), EKG, radiologic studies, plain films, and as a result, I will discharge patient. Test interpretation: by ED physician or midlevel provider: plain radiologic studies, CXR shows possible infiltrate vs atelectasis. . Counseling: I had a detailed discussion with the patient and/or guardian regarding: the historical points, exam findings, and any diagnostic results supporting the discharge/admit diagnosis, lab results, radiology results, the need for outpatient follow up, to return to the emergency department if symptoms worsen or persist or if there are any questions or concerns that arise at home. Special discussion: Based on the patient's history, exam, and Dx evaluation, there is no indication for emergent intervention or inpatient Tx. It is understood by the patient/guardian that if the Sx's persist or worsen they need to return immediately for re-evaluation. I discussed with the patient/guardian in detail that at this point there is no indication for admission to the hospital. It is understood, however, that if the symptoms persist or worsen the patient needs to return immediately for re-evaluation. ED course: Trop neg, no ischemia on ECG, reproducible chest pain, atelectasis vs infiltrate on cxr with COPD, will treat with zithromax.. 09/10 09:27 Order name: Troponin (emerg Dept Use Only); Complete Time: 10:12 rn 09/10 09:27 Order name: XRAY Chest (1 view); Complete Time: 10:56 rn 09/10 09:12 Order name: EKG; Complete Time: 09:12 snw 09/10 09:12 Order name: EKG - Nurse/Tech; Complete Time: 09:34 snw 09/10 09:28 Order name: Cardiac monitoring; Complete Time: 09:46 rn 09/10 09:28 Order name: IV Saline Lock; Complete Time: 09:46 rn 09/10 09:28 Order name: Labs collected and sent; Complete Time: 09:46 rn 09/10 09:28 Order name: O2 Per Protocol; Complete Time: 09:46 rn 09/10 09:28 Order name: O2 Sat Monitoring; Complete Time: 09:46 rn Administered Medications: 11:08 Drug: Xopenex 1.25 mg Route: Inhalation; sv Disposition: 09/10/19 11:03 Discharged to Home. Impression: Chest pain, unspecified, Pleurisy, Pneumonia. - Condition is Stable. - Discharge Instructions: Nonspecific Chest Pain, Chronic Obstructive Pulmonary Disease, Pleurisy. - Prescriptions for Ultram 50 mg Oral Tablet - take 1 tablet by ORAL route every 6 hours As needed; 12 tablet. Zithromax Z- Jose Rafael 250 mg Oral Tablet - take 1 tablet by ORAL route as directed for 5 days Day 1 - take two (2) tablets one time. Day 2, 3, 4 , 5 take one (1) tablet once daily.; 6 tablet. Albuterol Sulfate 90 mcg/actuation - inhale 1-2 puff by INHALATION route every 4-6 hours; 1 Inhaler. - Medication Reconciliation Form, Thank You Letter, Antibiotic Education, Prescription Opioid Use form. - Follow up: Private Physician; When: As needed; Reason: Recheck today's complaints, Re-evaluation by your physician. - Problem is new. - Symptoms have improved. Signatures: Dispatcher [employer] EDMaryam Zavala RN RN Astrid Rae, UPHOLSTERY ESTIMATOR-C UPHOLSTERY ESTIMATOR-Csnw Booker Bloom MD MD rn Smirch, Shelby, RN RN ss Corrections: (The following items were deleted from the chart) 13:48 11:03 09/10/2019 11:03 Discharged to Home. Impression: Chest pain, unspecified; ss Pleurisy; Pneumonia. Condition is Stable. Forms are Medication Reconciliation Form, Thank You Letter, Antibiotic Education, Prescription Opioid Use. Follow up: Private Physician; When: As needed; Reason: Recheck today's complaints, Re-evaluation by your physician. Problem is new. Symptoms have improved. rn
--- NOTE | 2019-09-10 11:04 | ER ---
Nurse's Notes [facility] Name: Maria M Yang Age: 58 yrs Sex: Female : 1960 Arrival Date: 09/10/2019 Time: 09:02 Bed 8 Private MD: Diagnosis: Chest pain, unspecified;Pleurisy;Pneumonia Presentation: 09/10 09:14 Presenting complaint: Patient states: Pt was waiting in ER lobby for taxi when she ss began having chest pain. Transition of care: patient was not received from another setting of care. Onset of symptoms was September 10, 2019. Risk Assessment: Do you want to hurt yourself or someone else? Patient reports no desire to harm self or others. Initial Sepsis Screen: Does the patient have a suspected source of infection? No. Patient's initial sepsis screen is negative. Initial Sepsis Screen: Does the patient meet any 2 criteria? No. Patient's initial sepsis screen is negative. Care prior to arrival: None. 09:14 Method Of Arrival: Ambulatory ss 09:14 Acuity: TYLER 3 ss Historical: - Allergies: 09:16 No Known Allergies; ss - Home Meds: 09:16 None [Active]; ss - PMHx: 09:16 Hernia; ss - PSHx: 09:16 I\T\D; ss - Immunization history:: Adult Immunizations not immunized. - Social history:: Smoking status: Patient uses tobacco products, smokes one pack cigarettes per day. - Ebola Screening: : Patient denies exposure to infectious person Patient denies travel to an Ebola-affected area in the 21 days before illness onset. - Family history:: not pertinent. - Hospitalizations: : No recent hospitalization is reported. Screenin:20 Abuse screen: Denies threats or abuse. Denies injuries from another. Nutritional ss screening: No deficits noted. Tuberculosis screening: Never had TB. Fall Risk None identified. Assessment: 09:20 Reassessment: Pt has large bag of food, clothing and blankets. Is requesting more food ss and clothing as well as coffee. No apparent distress noted at this time. 09:25 Pain: Pain does not radiate. Pain began. Cardiovascular: Reports. tw2 09:35 Reassessment:. General: Appears in no apparent distress. uncomfortable, Behavior is sv calm, cooperative, appropriate for age. Pain: Complains of pain in chest Pain does not radiate. Pain currently is 8 out of 10 on a pain scale. Is intermittent. Neuro: Level of Consciousness is awake, alert, obeys commands, Oriented to person, place, time, situation, Moves all extremities. Cardiovascular: Patient's skin is warm and dry. Pulses are palpable in right radial artery and left radial artery Rhythm is sinus rhythm. Respiratory: Airway is patent Respiratory effort is even, unlabored, Respiratory pattern is regular, symmetrical. 11:08 Reassessment: Patient appears in no apparent distress at this time. Patient and/or sv family updated on plan of care and expected duration. Pain level reassessed. Pt was asleep upon entry to the room, informed her that she would be getting a breathing treatment and then would be discharged. Pt stated she has pizza and a donut somewhere in here. 11:14 Reassessment: Pt up for discharge but is receiving her breathing treatment at this time.sv 13:47 Reassessment: Pt left in [place] and will go to [facility] where her neighbors are. ss Vital Signs: 09:16 BP 139 / 95; Pulse 86; Resp 20; Temp 97.2(TE); Pulse Ox 98% on R/A; Weight 18.14 kg; ss Pain 8/10; 10:15 BP 134 / 84; Pulse 94; Resp 22; Pulse Ox 98% ; sv 11:09 BP 135 / 86; Pulse 97; Resp 24; Pulse Ox 100% on Nebulizer Mask; sv ED Course: 09:02 Patient arrived in ED. as 09:15 Triage completed. ss 09:16 Arm band placed on right wrist. ss 09:20 Patient has correct armband on for positive identification. ss 09:20 Patient maintains SpO2 saturation greater than 95% on room air. ss 09:23 Booker Bloom MD is Attending Physician. rn 09:25 cardiac monitor on. Pulse ox on. NIBP on. tw2 09:26 EKG completed in triage. Results shown to . tw2 09:35 Maryam Feldman, CLEVE is Primary Nurse. sv 09:40 Missed attempt(s): 24 gauge in right forearm. done by Lucian in flight technician. Bleeding sv controlled, band aid applied, catheter tip intact. 09:45 Inserted saline lock: 24 gauge in left forearm, using aseptic technique. Blood sv collected. Flushed left forearm with 5 ml normal saline. 09:47 X-ray(s) taken. sv 09:58 XRAY Chest (1 view) In Process Unspecified. EDMS 13:47 No provider procedures requiring assistance completed. IV discontinued, intact, ss bleeding controlled, No redness/swelling at site. Pressure dressing applied. Administered Medications: 11:08 Drug: Xopenex 1.25 mg Route: Inhalation; sv Outcome: 11:03 Discharge ordered by . rn 13:47 Discharged to home ambulatory. ss 13:47 Condition: good 13:47 Discharge instructions given to patient, Instructed on discharge instructions, follow up and referral plans. medication usage, Demonstrated understanding of instructions, follow-up care, medications, Prescriptions given X 3. 13:48 Patient left the ED. ss Signatures: Dispatcher [employer] EDMS Maryam Feldman, RN RN Soraida Carmichael Roman, MD MD rn Smirch, Shelby, RN RN ss Wise, Tara, RN RN tw2
[2019-09-10] MEDS ORDERED: LEVALBUTEROL 1.25 MG/3 ML NEB ONE (11:09)
[2019-09-10 14:22] VITALS: TEMP 97.2
[2019-09-10 14:29] VITALS: BP 135/86; O2SAT 100
--- NOTE | 2019-09-11 10:26 | EKG ---
Test Date: 2019-09-10 Test Time: 09:31:15 Information Systems Security Developer: SWG MEASUREMENT RESULTS: Intervals: Rate: 93 SC: 154 QRSD: 60 QT: 402 QTc: 499 [place]: P: 78 SC: 154 QRS: 82 T: 71 INTERPRETIVE STATEMENTS: Normal sinus rhythm normal ECG No previous ECG available for comparison Electronically Signed On 09-11-19 10:26:09 CONTENT PUBLISHER by Nicanor Jones
== END 2019-09-10 13:48 | disposition home or self-care (01) ==
LOC: ER 09:01
DX: J18.9 Pneumonia, unspecified organism (principal); R09.1 Pleurisy; F17.210 Nicotine dependence, cigarettes, uncomplicated
CPT/HCPCS: 36415; 71045; 84484; 93005; 99285

== ENCOUNTER 2019-09-10 19:40 | Emergency (ER) | payer SELFPAY ==
--- NOTE | 2019-09-10 21:25 | EDPHYS ---
Physician Documentation [facility] Name: Maria M Yang Age: 58 yrs Sex: Female : 1960 Arrival Date: 09/10/2019 Time: 19:42 Bed 18 Private MD: ED Physician Rayne Rodriguez HPI: 09/10 20:14 This 58 yrs old Female presents to ER via EMS with complaints of Chest Pain. pm1 20:14 The patient or guardian reports chest pain that is located primarily in the anterior pm1 chest wall. Onset: this morning, around 9 AM. The pain does not radiate. Associated signs and symptoms: Pertinent positives: shortness of breath, Pertinent negatives: dizziness, headache, nausea, vomiting. The chest pain is described as sharp. Duration: The patient or guardian reports a single episode, that is still ongoing. Modifying factors: The symptoms are alleviated by nothing. the symptoms are aggravated by cough, deep breath. Severity of pain: in the emergency department the pain is unchanged. The patient has been recently seen at the [facility] Emergency Department, today, same complaint. Historical: - Allergies: 19:47 No Known Allergies; - Home Meds: 19:47 None [Active]; - PMHx: 19:47 Hernia; - Immunization history:: Adult Immunizations not up to date. - Social history:: Smoking status: Patient/guardian denies using tobacco. - Ebola Screening: : Patient negative for fever greater than or equal to 101.5 degrees Fahrenheit, and additional compatible Ebola Virus Disease symptoms Patient denies exposure to infectious person. ROS: 20:14 Constitutional: Negative for fever, chills, and weight loss. pm1 20:14 Abdomen/GI: Negative for abdominal pain, nausea, vomiting, diarrhea, and constipation, Back: Negative for injury and pain, : Negative for injury, bleeding, discharge, and swelling, MS/Extremity: Negative for injury and deformity, Skin: Negative for injury, rash, and discoloration, Neuro: Negative for headache, weakness, numbness, tingling, and seizure. 20:14 Cardiovascular: Positive for chest pain, Negative for edema, palpitations. 20:14 Respiratory: Positive for shortness of breath, Negative for wheezing. Exam: 20:14 Constitutional: This is a well developed, well nourished patient who is awake, alert, pm1 and in no acute distress. Head/Face: Normocephalic, atraumatic. 20:14 Cardiovascular: Regular rate and rhythm with a normal S1 and S2. No gallops, murmurs, or rubs. No pulse deficits. Respiratory: Lungs have equal breath sounds bilaterally, clear to auscultation and percussion. No rales, rhonchi or wheezes noted. No increased work of breathing, no retractions or nasal flaring. Abdomen/GI: Soft, non-tender, with normal bowel sounds. No distension or tympany. No guarding or rebound. No evidence of tenderness throughout. Back: No spinal tenderness. No costovertebral tenderness. Full range of motion. MS/ Extremity: Pulses equal, no cyanosis. Neurovascular intact. Full, normal range of motion. 20:14 Chest/axilla: Inspection: normal, Palpation: crepitus, is not appreciated, tenderness, of the mid-sternal area, that totally reproduces the patient's complaints. 20:14 Neuro: Orientation: is normal, Motor: is normal, moves all fours. Vital Signs: 19:48 BP 158 / 94; Pulse 98; Resp 18; Temp 97.7; Pulse Ox 99% ; Weight 42.18 kg; Height 5 ft. wh 2 in. (157.48 cm); Pain 5/10; 20:21 BP 134 / 85; Pulse 95; Resp 18; Pulse Ox 97% on R/A; wh 21:15 BP 125 / 81; Pulse 98; Resp 18; Pulse Ox 98% on R/A; wh 22:21 BP 139 / 87; Pulse 97; Resp 18; Pulse Ox 95% on R/A; wh 19:48 Body Mass Index 17.01 (42.18 kg, 157.48 cm) MDM: 20:11 Patient medically screened. pm1 21:17 Data reviewed: vital signs. Data interpreted: Pulse oximetry: on room air is 97 %. pm1 Interpretation: normal. 21:17 ED course: Patient with continued chest pain from onset this AM and was seen in the ER. pm1 Troponin negative at that time. Negative repeat troponin at this visit for the same complaint. 21:24 Counseling: I had a detailed discussion with the patient and/or guardian regarding: the pm1 historical points, exam findings, and any diagnostic results supporting the discharge/admit diagnosis, lab results, the need for outpatient follow up, to return to the emergency department if symptoms worsen or persist or if there are any questions or concerns that arise at home. 09/10 20:14 Order name: Troponin (emerg Dept Use Only); Complete Time: 21:17 pm1 09/10 20:14 Order name: EKG; Complete Time: 20:15 pm1 09/10 20:14 Order name: EKG - Nurse/Tech; Complete Time: 20:19 pm1 Administered Medications: No medications were administered Disposition: 09/10/19 21:24 Discharged to Home. Impression: Chest pain, unspecified. - Condition is Stable. - Discharge Instructions: Nonspecific Chest Pain. - Medication Reconciliation Form, Thank You Letter, Antibiotic Education, Prescription Opioid Use form. - Follow up: Emergency Department; When: As needed; Reason: Worsening of condition. Follow up: Private Physician; When: 2 - 3 days; Reason: Recheck today's complaints, Continuance of care, Re-evaluation by your physician. - Problem is new. - Symptoms have improved. Addendum: 09/12/2019 04:35 Co-signature as Attending Physician, Rayne Rodriguez MD. m a2 Signatures: Dispatcher [employer] Garcia Steward, ZACH INSTRUCTOR [place] pm1 Leatha Zheng Rayne Rodriguez MD MD ma2 Corrections: (The following items were deleted from the chart) 09/10 22:24 21:24 09/10/2019 21:24 Discharged to Home. Impression: Chest pain, unspecified. Condition is Stable. Forms are Medication Reconciliation Form, Thank You Letter, Antibiotic Education, Prescription Opioid Use. Follow up: Emergency Department; When: As needed; Reason: Worsening of condition. Follow up: Private Physician; When: 2 - 3 days; Reason: Recheck today's complaints, Continuance of care, Re-evaluation by your physician. Problem is new. Symptoms have improved. pm1
--- NOTE | 2019-09-10 21:25 | ER ---
Nurse's Notes [facility] Name: Maria M Yang Age: 58 yrs Sex: Female : 1960 Arrival Date: 09/10/2019 Time: 19:42 Bed 18 Private MD: Diagnosis: Chest pain, unspecified Presentation: 09/10 19:43 Presenting complaint: EMS states: Pt C/O chest pain and trouble breathing. Pt was seen and evaluated in ER this morning and yesterday for same complaints. Transition of care: patient was not received from another setting of care. Onset of symptoms was September 10, 2019. Risk Assessment: Do you want to hurt yourself or someone else? Patient reports no desire to harm self or others. Initial Sepsis Screen: Does the patient meet any 2 criteria? HR > 90 bpm. Yes Does the patient have a suspected source of infection? No. Patient's initial sepsis screen is negative. Care prior to arrival: None. 19:43 Method Of Arrival: [facility] 19:43 Acuity: TYLER 3 Triage Assessment: 19:15 General: Behavior is calm, cooperative, appropriate for age. 20:19 General: Appears. Historical: - Allergies: 19:47 No Known Allergies; - Home Meds: 19:47 None [Active]; - PMHx: 19:47 Hernia; - Immunization history:: Adult Immunizations not up to date. - Social history:: Smoking status: Patient/guardian denies using tobacco. - Ebola Screening: : Patient negative for fever greater than or equal to 101.5 degrees Fahrenheit, and additional compatible Ebola Virus Disease symptoms Patient denies exposure to infectious person. Screenin:47 Abuse screen: Denies threats or abuse. Denies injuries from another. Nutritional screening: No deficits noted. Tuberculosis screening: No symptoms or risk factors identified. Fall Risk None identified. Assessment: 20:19 General: Appears in no apparent distress. slender, unkempt. Pain: Complains of pain in chest Pain does not radiate. Pain currently is 5 out of 10 on a pain scale. Pain began 2-3 days ago. Neuro: Level of Consciousness is awake, alert, obeys commands, Oriented to person, place, time, situation, Appropriate for age. Cardiovascular: Heart tones S1 S2 Rhythm is regular. Respiratory: Airway is patent Respiratory effort is even, unlabored, Respiratory pattern is regular, symmetrical, Breath sounds are clear bilaterally. GI: Abdomen is flat, non-distended. : No signs and/or symptoms were reported regarding the genitourinary system. EENT: No signs and/or symptoms were reported regarding the EENT system. Derm: Skin is intact, is healthy with good turgor, Skin is pink, warm \T\ dry. normal. Musculoskeletal: Circulation, motion, and sensation intact. 21:10 Reassessment: Patient appears in no apparent distress at this time. No changes from previously documented assessment. Patient and/or family updated on plan of care and expected duration. Pain level reassessed. Patient is alert, oriented x 3, equal unlabored respirations, skin warm/dry/pink. 22:21 Reassessment: Patient appears in no apparent distress at this time. No changes from previously documented assessment. Patient and/or family updated on plan of care and expected duration. Pain level reassessed. Patient is alert, oriented x 3, equal unlabored respirations, skin warm/dry/pink. Vital Signs: 19:48 BP 158 / 94; Pulse 98; Resp 18; Temp 97.7; Pulse Ox 99% ; Weight 42.18 kg; Height 5 ft. 2 in. (157.48 cm); Pain 5/10; 20:21 BP 134 / 85; Pulse 95; Resp 18; Pulse Ox 97% on R/A; 21:15 BP 125 / 81; Pulse 98; Resp 18; Pulse Ox 98% on R/A; wh 22:21 BP 139 / 87; Pulse 97; Resp 18; Pulse Ox 95% on R/A; wh 19:48 Body Mass Index 17.01 (42.18 kg, 157.48 cm) ED Course: 19:42 Patient arrived in ED. ds1 19:42 Leatha Zheng is Primary Nurse. wh 19:43 Garcia Salcido NP is PHCP. pm1 19:43 Booker Bloom MD is Attending Physician. pm1 19:46 Triage completed. wh 20:11 Rayne Rodriguez MD is Attending Physician. pm1 20:21 Arm band placed on right wrist. wh 20:21 Patient has correct armband on for positive identification. Placed in gown. Bed in low wh position. Call light in reach. residential monitor on. Pulse ox on. NIBP on. 20:21 Patient maintains SpO2 saturation greater than 95% on room air. wh 22:22 No provider procedures requiring assistance completed. Patient did not have IV access wh during this emergency room visit. Administered Medications: No medications were administered Outcome: 21:24 Discharge ordered by MD. pm1 22:23 Discharged to home via wheelchair. wh 22:23 Condition: stable 22:23 Discharge instructions given to patient, Instructed on discharge instructions, follow up and referral plans. POC Demonstrated understanding of instructions, follow-up care, POC 22:24 Patient left the ED. Signatures: Zeina Reeder ds1 Garcia Salcido, BURN OUT TENDER LACE BURN OUT TENDER LACE pm1 Leatha Zheng Corrections: (The following items were deleted from the chart) 19:48 19:43 Presenting complaint: EMS states: Pt C/O chest pain and trouble breathing. Pt was wh seen and evaluated in ER yesterday for same complaints 20:22 19:48 BP 158 / 94; Pulse 198bpm; Resp 18bpm; Pulse Ox 99%; Temp 97.7F; 42.18 kg; Height 5 ft. 2 in.; BMI: 17.0; Pain 5/10; wh
[2019-09-10 22:28] VITALS: TEMP 97.7
[2019-09-10 22:36] VITALS: BP 139/87; O2SAT 95
--- NOTE | 2019-09-11 05:29 | EKG ---
Test Date: 2019-09-10 Test Time: 21:07:25 [employer] Construction Worker: DIANE MEASUREMENT RESULTS: Intervals: Rate: 99 IN: 144 QRSD: 80 QT: 384 QTc: 492 [place]: P: 78 IN: 144 QRS: 85 T: 75 INTERPRETIVE STATEMENTS: Normal sinus rhythm Possible Left atrial enlargement Borderline ECG No previous ECG available for comparison Electronically Signed On 09-11-19 05:28:47 ACUTE CARE CERTIFIED NURSING ASSISTANT by Nicanor Jones
== END 2019-09-10 22:24 | disposition home or self-care (01) ==
LOC: ER 19:40
DX: R07.9 Chest pain, unspecified (principal); R06.02 Shortness of breath
CPT/HCPCS: 36415; 84484; 93005; 99284

== ENCOUNTER 2019-10-22 23:19 | Emergency (ER) | payer SELFPAY ==
[2019-10-23 02:10] LABS: Absolute Lymphocytes (CBC) 2.2 K/uL (0.7-4.9); Basophils % 0.9 % (0-1.3); Hematocrit 40.1 % (36.0-45.0); Lymphocytes % 44.6 % (15.3-44.8); MPV 7.5 fL (7.6-11.3); RBC Red Blood Cell Count 4.19 M/uL (3.86-4.86)
[2019-10-23] MEDS ORDERED: NA CHLORIDE 0.9% 1,000 ML ONE (02:23)
[2019-10-23 02:24] LABS: Protime INR 0.96
[2019-10-23 02:37] LABS: ALT/SGPT 13 U/L (12-78); AST/SGOT 19 U/L (15-37); Albumin 3.4 g/dL (3.4-5.0); Alkaline Phosphatase 77 U/L (45-117); Bilirubin Direct 0.1 mg/dL (0-0.2); Bilirubin Total 0.4 mg/dL (0.2-1.0); Magnesium 1.9 mg/dL (1.8-2.4); NT PRO-BNP 103 pg/mL (<125); Protein, Total 8.2 g/dL (6.4-8.2); Troponin I < 0.02 ng/mL (0.0-0.045)
[2019-10-23] MEDS ORDERED: HYDROCODONE/CHLORPHEN 5 ML/OSYR ONE (02:59)
[2019-10-23 03:41] LABS: Urine Blood NEGATIVE (NEG); Urine Glucose NEGATIVE (NEG); Urine Protein NEGATIVE (NEG)
--- NOTE | 2019-10-23 04:10 | EDPHYS ---
Physician Documentation [facility] Name: Maria M Yang Age: 59 yrs Sex: Female : 1960 Arrival Date: 10/22/2019 Time: 23:21 Bed 4 Private MD: ED Physician Hari Romero HPI: 10/23 03:07 This 59 yrs old Female presents to ER via EMS with complaints of Vaginal pkl Bleeding. 03:07 Onset: The symptoms/episode began/occurred just prior to arrival, today. Associated pkl signs and symptoms: Pertinent positives: cough. The patient has experienced similar episodes in the past, a few times. Historical: - Allergies: 10/22 23:21 No Known Allergies; jb4 - Home Meds: 23:21 None [Active]; jb4 - PMHx: 23:21 Hernia; vaginal bleeding.; Chronic pain; jb4 - PSHx: 23:21 None; jb4 - Immunization history:: Adult Immunizations unknown. - Coronavirus screen:: The patient has NOT traveled to [place] in the past 14 days. Proceed with normal triage process as indicated. The patient has NOT had contact with known/suspected case of Coronavirus? Proceed with normal triage procedures. - Social history:: Smoking status: Patient reports the use of cigarette tobacco products, smokes one pack cigarettes per day. Patient uses alcohol, patient/guardian reports recent binge of alcohol consumption. Patient/guardian denies using street drugs. - Ebola Screening: : No symptoms or risks identified at this time. ROS: 10/23 03:07 Positive for vaginal bleeding. pkl Eyes: Negative for injury, pain, redness, and discharge, ENT: Negative for injury, pain, and discharge, Neck: Negative for injury, pain, and swelling, Cardiovascular: Negative for chest pain, palpitations, and edema. Respiratory: Positive for cough, with no reported sputum. Abdomen/GI: Negative for abdominal pain, nausea, vomiting, and diarrhea. Back: Negative for pain at rest. : Positive for vaginal bleeding. MS/extremity: Negative for acute changes. Skin: Negative for rash. Neuro: Negative for altered mental status. Exam: 03:07 Head/Face: Normocephalic, atraumatic. Eyes: Pupils equal round and reactive to light, pkl extra-ocular motions intact. Lids and lashes normal. Conjunctiva and sclera are non-icteric and not injected. Cornea within normal limits. Periorbital areas with no swelling, redness, or edema. ENT: Nares patent. No nasal discharge, no septal abnormalities noted. Tympanic membranes are normal and external auditory canals are clear. Oropharynx with no redness, swelling, or masses, exudates, or evidence of obstruction, uvula midline. Mucous membranes moist. Neck: Trachea midline, no thyromegaly or masses palpated, and no cervical lymphadenopathy. Supple, full range of motion without nuchal rigidity, or vertebral point tenderness. No Meningismus. Chest/axilla: Normal chest wall appearance and motion. Nontender with no deformity. No lesions are appreciated. Cardiovascular: Regular rate and rhythm with a normal S1 and S2. No gallops, murmurs, or rubs. Normal PMI, no JVD. No pulse deficits. 03:07 Respiratory: the patient does not display signs of respiratory distress, Respirations: normal, Breath sounds: are clear throughout. 03:07 Abdomen/GI: Bowel sounds: normal, Palpation: abdomen is soft and non-tender, in all quadrants. 03:07 Back: Exam negative for acute changes. 03:07 : Pelvic Exam: Speculum exam: no bleeding is noted, os that is closed, a female compliance lead was present for the exam. 03:07 Musculoskeletal/extremity: Exam is negative for acute changes. 03:07 Skin: Exam negative for rash. 03:07 Neuro: Orientation: appropriate for stated age, Mentation: is normal, Cranial nerves: grossly normal, Motor: is normal. Vital Signs: 10/22 23:21 BP 153 / 98; Pulse 99; Resp 16; Temp 97.6(O); Pulse Ox 95% on R/A; Weight 40.82 kg (R); jb4 Height 5 ft. 4 in. (162.56 cm) (R); Pain 9/10; 10/23 00:39 BP 148 / 92; Pulse 83; Resp 16; Pulse Ox 94% on R/A; jb4 02:15 BP 137 / 86; Pulse 87; Resp 20; Pulse Ox 98% on R/A; jb4 03:00 BP 142 / 96; Pulse 92; Resp 20; Pulse Ox 97% on R/A; lp1 03:45 BP 140 / 86; Pulse 86; Resp 20; Pulse Ox 96% on R/A; jb4 04:30 BP 152 / 97; Pulse 93; Resp 20; Pulse Ox 95% on R/A; jb4 10/22 23:21 Body Mass Index 15.45 (40.82 kg, 162.56 cm) jb4 MDM: 10/22 23:47 [facility] 10/23 03:07 Data reviewed: vital signs, nurses notes, lab test result(s). pk 04:07 Data reviewed: EKG, radiologic studies, plain films. pk 10/23 02:31 Order name: CBC with Automated Diff; Complete Time: 03:04 EDMS 10/23 02:39 Order name: Protime (+INR); Complete Time: 03:04 EDMS 10/23 02:39 Order name: Liver (Hepatic) Function; Complete Time: 03:04 EDMS 10/23 02:39 Order name: Troponin I; Complete Time: 03:04 EDMS 10/23 02:39 Order name: NT PRO-BNP; Complete Time: 03:04 EDMS 10/23 02:39 Order name: Magnesium; Complete Time: 03:04 EDMS 10/23 03:33 Order name: Urine Dipstick--Ancillary (enter results); Complete Time: 05:36 2 10/23 01:07 Order name: XRAY Chest (1 view) pk 10/23 01:07 Order name: EKG; Complete Time: 02:21 pk 10/23 01:07 Order name: Cardiac monitoring; Complete Time: 01:13 pk 10/23 01:07 Order name: EKG - Nurse/Tech; Complete Time: 01:37 pkl 10/23 01:07 Order name: IV Saline Lock; Complete Time: 01:37 pkl 10/23 01:07 Order name: Labs collected and sent; Complete Time: 01:37 pkl 10/23 01:07 Order name: O2 Per Protocol; Complete Time: 01:14 pkl 10/23 01:07 Order name: O2 Sat Monitoring; Complete Time: 01:14 pkl Administered Medications: 02:21 Drug: NS 0.9% 1000 ml Route: IV; Rate: 125 ml/hr; Site: right forearm; lp1 05:28 Follow up: Response: No adverse reaction; IV Status: Order to discontinue infusion 4 03:00 Drug: Tussionex Pennkinetic ER 5 ml Route: PO; jb4 04:00 Follow up: Response: No adverse reaction; Marked relief of symptoms; Pain is decreased jb4 Disposition: 10/23/19 04:09 Discharged to Home. Impression: Vaginal bleeding ( Resolved ) Bronchitis. - Condition is Stable. - Prescriptions for Guaifenesin AC 10- 100 mg/5 mL Oral Liquid - take 5 milliliter by ORAL route every 8 hours As needed; 60 milliliter. - Medication Reconciliation Form, Thank You Letter, Antibiotic Education, Prescription Opioid Use form. - Follow up: Private Physician; When: 2 - 3 days; Reason: Re-evaluation by your physician. - Problem is new. - Symptoms have improved. Signatures: Dispatcher [employer] EDMS Hari oRmero MD MD pkl Pennie Brown RN RN lp1 Santi Ojeda RN RN jb4 Corrections: (The following items were deleted from the chart) 03:48 02:20 BASIC METABOLIC PANEL+C.LAB.BRZ ordered. EDMS EDMS 03:48 02:20 CBC+H.LAB.BRZ ordered. EDMS EDMS 03:48 02:20 HEPATIC FUNCTION+C.LAB.BRZ ordered. EDMS EDMS 03:48 02:20 PROTIME (+INR)+COAG.LAB.BRZ ordered. EDFL EDMS 03:48 02:21 TROPONIN (EMERG DEPT USE ONLY)+C.LAB.BRZ ordered. EDFL EDMS 03:49 02:20 MAGNESIUM+C.LAB.BRZ ordered. EDFL EDMS 03:49 02:20 PROBNP+C.LAB.BRZ ordered. EDFL EDMS 05:28 04:09 10/23/2019 04:09 Discharged to Home. Impression: Vaginal bleeding ( Resolved ) jb4 Bronchitis. Condition is Stable. Forms are Medication Reconciliation Form, Thank You Letter, Antibiotic Education, Prescription Opioid Use. Follow up: Private Physician; When: 2 - 3 days; Reason: Re-evaluation by your physician. Problem is new. Symptoms have improved. pkl
--- NOTE | 2019-10-23 04:10 | ER ---
Nurse's Notes [facility] Name: Maria M Yang Age: 59 yrs Sex: Female : 1960 Arrival Date: 10/22/2019 Time: 23:21 Bed 4 Private MD: Diagnosis: Vaginal bleeding ( Resolved ) Bronchitis Presentation: 10/22 23:21 Presenting complaint: Patient states: I start bleeding when I am stressed and they said jb4 they would not let me in due to alcohol consumption and that stressed me so I started bleeding. EMS states: Pt reports vaginal bleeding and was trying to go back to [facility] and they would not let her in. 23:21 Transition of care: patient was not received from another setting of care. Onset of jb4 symptoms was October 22, 2019. Risk Assessment: Do you want to hurt yourself or someone else? Patient reports no desire to harm self or others. Initial Sepsis Screen: Does the patient meet any 2 criteria? HR > 90 bpm. Yes Does the patient have a suspected source of infection? No. Patient's initial sepsis screen is negative. Care prior to arrival: None. 23:21 Method Of Arrival: EMS: [facility] jb4 23:21 Acuity: TYLER 3 jb4 Historical: - Allergies: 23:21 No Known Allergies; jb4 - Home Meds: 23:21 None [Active]; jb4 - PMHx: 23:21 Hernia; vaginal bleeding.; Chronic pain; jb4 - PSHx: 23:21 None; jb4 - Immunization history:: Adult Immunizations unknown. - Coronavirus screen:: The patient has NOT traveled to [place] in the past 14 days. Proceed with normal triage process as indicated. The patient has NOT had contact with known/suspected case of Coronavirus? Proceed with normal triage procedures. - Social history:: Smoking status: Patient reports the use of cigarette tobacco products, smokes one pack cigarettes per day. Patient uses alcohol, patient/guardian reports recent binge of alcohol consumption. Patient/guardian denies using street drugs. - Ebola Screening: : No symptoms or risks identified at this time. Screenin:21 Abuse screen: Denies threats or abuse. Nutritional screening: No deficits noted. jb4 Tuberculosis screening: No symptoms or risk factors identified. Fall Risk None identified. Assessment: 23:21 General: Appears in no apparent distress. uncomfortable, Behavior is calm, cooperative, jb4 appropriate for age. Pain: Complains of pain in back Pain does not radiate. Pain currently is 9 out of 10 on a pain scale. Neuro: Level of Consciousness is awake, alert, obeys commands, Oriented to person, place, time, situation. Cardiovascular: Patient's skin is warm and dry. Respiratory: Reports cough that is Airway is patent Respiratory effort is even, unlabored, Respiratory pattern is regular, symmetrical, Breath sounds are clear in right upper lobe, right middle lobe, right lower lobe, right posterior upper lobe, right posterior middle lobe and right posterior lower lobe Breath sounds are diminished bilaterally. Breath sounds with wheezes in left upper lobe, left lower lobe, left posterior upper lobe and left posterior lower lobe. GI: No signs and/or symptoms were reported involving the gastrointestinal system. : Vaginal discharge is mejia blood, Reports vaginal bleeding that is bright red, spotty. EENT: No signs and/or symptoms were reported regarding the EENT system. Derm: Skin is intact, Skin is pink, warm \T\ dry. Musculoskeletal: Circulation, motion, and sensation intact. Range of motion: intact in all extremities. 10/23 00:48 Reassessment: Patient appears in no apparent distress at this time. Pt is resting in jb4 bed with eye closed, respirations are even and unlabored. no s/s of pain or distress noted. 02:00 Reassessment: Patient appears in no apparent distress at this time. Patient and/or jb4 family updated on plan of care and expected duration. Pain level reassessed. Patient is alert, oriented x 3, equal unlabored respirations, skin warm/dry/pink. 03:00 Reassessment: Patient appears in no apparent distress at this time. Patient and/or jb4 family updated on plan of care and expected duration. Pain level reassessed. Patient is alert, oriented x 3, equal unlabored respirations, skin warm/dry/pink. 04:00 Reassessment: Patient appears in no apparent distress at this time. Patient and/or jb4 family updated on plan of care and expected duration. Pain level reassessed. Patient is alert, oriented x 3, equal unlabored respirations, skin warm/dry/pink. Cough has decreased. 05:24 Reassessment: Patient appears in no apparent distress at this time. Patient and/or jb4 family updated on plan of care and expected duration. Pain level reassessed. Patient is alert, oriented x 3, equal unlabored respirations, skin warm/dry/pink. Pt assisted to Lobby to wait for ride. Pt verbalized understanding of d/c and follow up instructions. Vital Signs: 10/22 23:21 BP 153 / 98; Pulse 99; Resp 16; Temp 97.6(O); Pulse Ox 95% on R/A; Weight 40.82 kg (R); jb4 Height 5 ft. 4 in. (162.56 cm) (R); Pain 9/10; 10/23 00:39 BP 148 / 92; Pulse 83; Resp 16; Pulse Ox 94% on R/A; jb4 02:15 BP 137 / 86; Pulse 87; Resp 20; Pulse Ox 98% on R/A; jb4 03:00 BP 142 / 96; Pulse 92; Resp 20; Pulse Ox 97% on R/A; lp1 03:45 BP 140 / 86; Pulse 86; Resp 20; Pulse Ox 96% on R/A; jb4 04:30 BP 152 / 97; Pulse 93; Resp 20; Pulse Ox 95% on R/A; jb4 10/22 23:21 Body Mass Index 15.45 (40.82 kg, 162.56 cm) jb4 ED Course: 10/22 23:21 Patient arrived in ED. ds1 23:21 Arm band placed on right wrist. jb4 23:21 Patient has correct armband on for positive identification. Bed in low position. Call jb4 light in reach. Side rails up X 1. Pulse ox on. NIBP on. 23:32 Santi Ojeda, RN is Primary Nurse. jb4 23:35 Triage completed. jb4 23:47 Hari Romero MD is Attending Physician. pkl 10/23 01:30 Inserted saline lock: 22 gauge in right forearm, using aseptic technique. Blood lp1 collected. 03:58 XRAY Chest (1 view) In Process Unspecified. EDMS 05:27 No provider procedures requiring assistance completed. IV discontinued, intact, jb4 bleeding controlled, No redness/swelling at site. Pressure dressing applied. Administered Medications: 02:21 Drug: NS 0.9% 1000 ml Route: IV; Rate: 125 ml/hr; Site: right forearm; lp1 05:28 Follow up: Response: No adverse reaction; IV Status: Order to discontinue infusion jb4 03:00 Drug: Tussionex Pennkinetic ER 5 ml Route: PO; jb4 04:00 Follow up: Response: No adverse reaction; Marked relief of symptoms; Pain is decreased jb4 Outcome: 04:09 Discharge ordered by . samreen 05:27 Discharged to home via wheelchair. jb4 05:27 Condition: stable 05:27 Discharge instructions given to patient, Instructed on discharge instructions, follow up and referral plans. Demonstrated understanding of instructions, follow-up care. 05:28 Patient left the ED. jb4 Signatures: Dispatcher [employer] EDMS Hari Romero MD MD pkl Zeina Reeder ds1 Pennie Brown RN RN lp1 Santi Ojeda RN RN jb4 Corrections: (The following items were deleted from the chart) 00:50 10/22 23:21 Respiratory: Reports cough that is Airway is patent Respiratory effort is jb4 even, unlabored, Respiratory pattern is regular, symmetrical, jb4 10/23 00:50 10/22 23:21 : Reports vaginal bleeding that is jb4 jb4
[2019-10-23 07:08] VITALS: TEMP 97.6
[2019-10-23 07:15] VITALS: BP 152/97; O2SAT 95
--- NOTE | 2019-10-23 08:02 | RAD REPORT ---
EXAM DESCRIPTION: Romaine Single View10/23/2019 3:57 am CLINICAL HISTORY: Cough COMPARISON: August 2019 FINDINGS: Old clavicular and rib fractures. Lungs appear clear of acute infiltrate. Lungs are hyperaerated. Heart is normal size IMPRESSION: No acute abnormalities displayed
--- NOTE | 2019-10-23 08:52 | EKG ---
Test Date: 2019-10-23 Test Time: 01:23:16 Psychological Stress Evaluator: CARSON MEASUREMENT RESULTS: Intervals: Rate: 95 CA: 164 QRSD: 70 QT: 372 QTc: 467 Aneta: P: 81 CA: 164 QRS: 83 T: 76 INTERPRETIVE STATEMENTS: Normal sinus rhythm Normal ECG Compared to ECG 09/10/2019 21:07:25 No significant changes Electronically Signed On 10-23-19 08:51:54 TRANSIT PLANNER by Nicanor Jones
== END 2019-10-23 05:28 | disposition home or self-care (01) ==
LOC: ER 23:19
DX: J40 Bronchitis, not specified as acute or chronic (principal); F17.210 Nicotine dependence, cigarettes, uncomplicated
CPT/HCPCS: 36415; 71045; 80076; 81003; 83735; 83880; 84484; 85025; 85610; 93005; 96360; 96361; 99284; J7030

== ENCOUNTER 2019-10-23 19:50 | Inpatient (IN) | payer SELFPAY ==
[2019-10-23] MEDS ORDERED: ONDANSETRON 4 MG/2 ML VIAL ONE (20:37)
[2019-10-23] MEDS ORDERED: NA CHLORIDE 0.9% 1,000 ML ONE (20:37)
[2019-10-23] MEDS ORDERED: MORPHINE 4 MG/ML SYR ONE (20:37)
[2019-10-23 21:02] LABS: Absolute Lymphocytes (CBC) 1.8 K/uL (0.7-4.9); Basophils % 0.7 % (0-1.3); Hematocrit 39.1 % (36.0-45.0); Lymphocytes % 18.4 % (15.3-44.8); MPV 7.4 fL (7.6-11.3); RBC Red Blood Cell Count 4.07 M/uL (3.86-4.86)
[2019-10-23 21:27] LABS: ALT/SGPT 13 U/L (12-78); Albumin 3.3 g/dL (3.4-5.0); Alkaline Phosphatase 83 U/L (45-117); BUN Blood Urea Nitrogen 10 mg/dL (7-18); Bicarbonate 29 mmol/L (21-32); Bilirubin Direct 0.1 mg/dL (0-0.2); Bilirubin Total 0.4 mg/dL (0.2-1.0); Glucose Level 96 mg/dL (74-106); Lipase 221 U/L (73-393); Protein, Total 8.5 g/dL (6.4-8.2); Sodium Level 132 mmol/L (136-145)
[2019-10-23 21:28] LABS: AST/SGOT 22 U/L (15-37); Potassium 4.2 mmol/L (3.5-5.1)
[2019-10-23] MEDS ORDERED: ACETAMINOPHEN 500 MG TAB ONE (22:14)
--- NOTE | 2019-10-23 22:34 | ER ---
Nurse's Notes [facility] Name: Maria M Yang Age: 59 yrs Sex: Female : 1960 Arrival Date: 10/23/2019 Time: 19:59 Bed 14 Private MD: Diagnosis: Chronic obstructive pulmonary disease with (acute) exacerbation;Abdominal tenderness;Hypoxemia;Fever, unspecified Presentation: 10/23 20:01 Presenting complaint: EMS states: Was discharged from facility this morning, with dx of sg hernia, pt reports was unable to get back to the [employer], pain has worsened and would like to be re evaluated. Transition of care: patient was not received from another setting of care. Onset of symptoms was October 23, 2019. Risk Assessment: Do you want to hurt yourself or someone else? Patient reports no desire to harm self or others. Initial Sepsis Screen: Does the patient meet any 2 criteria? No. Patient's initial sepsis screen is negative. Does the patient have a suspected source of infection? No. Patient's initial sepsis screen is negative. Care prior to arrival: None. 20:01 Method Of Arrival: EMS: [facility] sg 20:01 Acuity: TYLER 3 sg Historical: - Allergies: 20:03 No Known Allergies; sg - PMHx: 20:03 Chronic pain; Hernia; vaginal bleeding.; sg - PSHx: 20:03 None; sg - Immunization history:: Adult Immunizations up to date. - Coronavirus screen:: The patient has NOT traveled to [place] in the past 14 days. The patient has NOT had contact with known/suspected case of Coronavirus?. - Social history:: Patient/guardian denies using alcohol, street drugs, The patient lives alone, with family, Smoking status: Patient denies any tobacco usage or history of. - Family history:: not pertinent. - Ebola Screening: : Patient negative for fever greater than or equal to 101.5 degrees Fahrenheit, and additional compatible Ebola Virus Disease symptoms Patient denies exposure to infectious person Patient denies travel to an Ebola-affected area in the 21 days before illness onset No symptoms or risks identified at this time. Screenin:33 Abuse screen: Denies threats or abuse. Denies injuries from another. Nutritional mg2 screening: No deficits noted. Tuberculosis screening: No symptoms or risk factors identified. Fall Risk IV access (20 points). Assessment: 20:00 General: Appears in no apparent distress. comfortable, Behavior is calm, cooperative. mg2 Pain: Complains of pain in abdomen. Neuro: Level of Consciousness is awake, alert, obeys commands, Oriented to person, place, time, situation. Cardiovascular: Capillary refill < 3 seconds Patient's skin is warm and dry. Respiratory: Airway is patent Respiratory effort is even, unlabored, Respiratory pattern is regular, symmetrical. Respiratory: Breath sounds with wheezes bilaterally. in right upper lobe and left upper lobe. GI: Bowel sounds present X 4 quads. GI: Abd is soft and non tender Reports lower abdominal pain, upper abdominal pain. : No signs and/or symptoms were reported regarding the genitourinary system. EENT: No signs and/or symptoms were reported regarding the EENT system. Derm: Skin is intact, is healthy with good turgor, Skin is pink, warm \T\ dry. normal. Musculoskeletal: Circulation, motion, and sensation intact. Capillary refill < 3 seconds. 22:56 Reassessment: Reassessment: provider informed about the patient's vs. mg2 10/24 00:52 Reassessment: patient in CT scan now. mg2 Vital Signs: 10/23 20:03 BP 154 / 82; Pulse 103; Resp 20; Temp 97.6; Pulse Ox 98% on R/A; sg 22:06 BP 142 / 96; Pulse 120; Resp 18; Temp 100.5; Pulse Ox 92% on R/A; mg2 22:34 Pulse Ox 89% on 2 lpm NC; mg2 22:34 BP 151 / 97; Pulse 104; Resp 18; Pulse Ox 96% on 2 lpm NC; mg2 23:15 Weight 34.52 kg; mg2 10/24 00:58 BP 152 / 93; Pulse 103; Resp 18; Temp 99.4; Pulse Ox 96% on R/A; mg2 ED Course: 10/23 19:59 Patient arrived in ED. cl3 20:02 Triage completed. sg 20:02 Arm band placed on. sg 20:18 Rayne Rodriguez MD is Attending Physician. ma2 20:27 Jorge Alejandra, CLEVE is Primary Nurse. mg2 20:45 Inserted saline lock: 20 gauge in right forearm, using aseptic technique. Blood mg2 collected. 22:35 Patient has correct armband on for positive identification. mg2 22:35 No provider procedures requiring assistance completed. mg2 23:04 Attending Physician role handed off by Rayne Rodriguez MD margarette 23:04 Nick Hammer MD is Attending Physician. margarette 23:09 Rayne Shepard MD is Hospitalizing Provider. margarette 23:30 First set of blood cultures drawn by me. mg2 23:45 Second set of blood cultures drawn by me. mg2 23:48 Patient admitted, IV remains in place. mg2 Administered Medications: 20:45 Drug: NS 0.9% 1000 ml Route: IV; Rate: 1 bolus; Site: right forearm; mg2 10/24 00:55 Follow up: Response: No adverse reaction; IV Status: Completed infusion; IV Intake: mg2 1000ml 10/23 20:45 Drug: morphine 4 mg Route: IVP; Site: right forearm; mg2 10/24 00:55 Follow up: Response: No adverse reaction; RASS: Alert and Calm (0) mg2 10/23 20:45 Drug: Zofran 4 mg Route: IVP; Site: right forearm; mg2 10/24 00:55 Follow up: Response: No adverse reaction mg2 10/23 22:11 Drug: Tylenol 500 mg Route: PO; mg2 10/24 00:54 Follow up: Response: No adverse reaction mg2 10/23 23:49 Drug: AtroVENT Aerosol 0.5 mg Route: Inhalation; mg2 10/24 00:53 Follow up: Response: No adverse reaction mg2 10/23 23:49 Drug: Pepcid 20 mg Route: IVP; Site: right forearm; mg2 10/24 00:53 Follow up: Response: No adverse reaction mg2 10/23 23:50 Drug: levofloxacin 500 mg Volume: 100 ml; Route: IVPB; Infused Over: 60 mins; Site: mg2 right forearm; 10/24 00:54 Follow up: Response: No adverse reaction; IV Status: Infusion continued upon admission mg2 10/23 23:50 Drug: SOLU-Medrol 2 mg/kg Route: IVP; Site: right forearm; mg2 10/24 00:53 Follow up: Response: No adverse reaction mg2 10/23 23:50 Drug: Xopenex 2.5 mg Route: Inhalation; mg2 10/24 00:53 Follow up: Response: No adverse reaction mg2 Intake: 00:55 IV: 1000ml; Total: 1000ml. mg2 Outcome: 10/23 21:26 Discharge ordered by MD. clements 23:10 Decision to Hospitalize by Provider. margarette 10/24 01:18 Admitted to Med/surg accompanied by nurse, via wheelchair, room 210, with oxygen, with mg2 chart, Report called to ADY Francisco Condition: stable Instructed on the need for admit, Demonstrated understanding of instructions. 01:25 Patient left the ED. mg2 Signatures: Gavin Suarez RN RN sg Anderson, Corey, MD MD cha Alzahri, Mohammad, MD MD ma2 Gardose, Michele, RN RN mg2 Maciej Bergeron cl3 Corrections: (The following items were deleted from the chart) 10/23 22:35 22:06 BP 142 / 96; Pulse 120bpm; Resp 18bpm; Pulse Ox 100% RA; Temp 100.5F; mg2 mg2 22:56 22:40 Reassessment: mg2 mg2
--- NOTE | 2019-10-23 22:35 | EDPHYS ---
Physician Documentation [facility] Name: Maria M Yang Age: 59 yrs Sex: Female : 1960 Arrival Date: 10/23/2019 Time: 19:59 Bed 14 Private MD: ED Physician Nick Hammer HPI: 10/23 20:23 This 59 yrs old Female presents to ER via EMS with complaints of Abdominal ma2 Pain. 20:23 The patient presents with abdominal pain. Onset: The symptoms/episode began/occurred ma2 gradually, 16 day(s) ago. Associated signs and symptoms: Pertinent negatives: blood in stools, chest pain, vaginal discharge. Severity of pain: At its worst the pain was mild in the emergency department the pain is unchanged. The patient has experienced similar episodes in the past. Historical: - Allergies: 20:03 No Known Allergies; sg - PMHx: 20:03 Chronic pain; Hernia; vaginal bleeding.; sg - PSHx: 20:03 None; sg - Immunization history:: Adult Immunizations up to date. - Coronavirus screen:: The patient has NOT traveled to [place] in the past 14 days. The patient has NOT had contact with known/suspected case of Coronavirus?. - Social history:: Patient/guardian denies using alcohol, street drugs, The patient lives alone, with family, Smoking status: Patient denies any tobacco usage or history of. - Family history:: not pertinent. - Ebola Screening: : Patient negative for fever greater than or equal to 101.5 degrees Fahrenheit, and additional compatible Ebola Virus Disease symptoms Patient denies exposure to infectious person Patient denies travel to an Ebola-affected area in the 21 days before illness onset No symptoms or risks identified at this time. ROS: 20:23 Constitutional: Negative for fever, chills, and weight loss. ma2 20:23 All other systems are negative. Exam: 20:23 Constitutional: This is a well developed, well nourished patient who is awake, alert, ma2 and in no acute distress. Neck: Trachea midline, no thyromegaly or masses palpated, and no cervical lymphadenopathy. Supple, full range of motion without nuchal rigidity, or vertebral point tenderness. No Meningismus. Chest/axilla: Normal chest wall appearance and motion. Nontender with no deformity. No lesions are appreciated. Cardiovascular: Regular rate and rhythm with a normal S1 and S2. No gallops, murmurs, or rubs. Normal PMI, no JVD. No pulse deficits. Respiratory: Lungs have equal breath sounds bilaterally, clear to auscultation and percussion. No rales, rhonchi or wheezes noted. No increased work of breathing, no retractions or nasal flaring. Abdomen/GI: Soft, non-tender, with normal bowel sounds. No distension or tympany. No guarding or rebound. No evidence of tenderness throughout. Neuro: Awake and alert, GCS 15, oriented to person, place, time, and situation. Cranial nerves II-XII grossly intact. Motor strength 5/5 in all extremities. Sensory grossly intact. Cerebellar exam normal. Normal gait. Vital Signs: 20:03 BP 154 / 82; Pulse 103; Resp 20; Temp 97.6; Pulse Ox 98% on R/A; sg 22:06 BP 142 / 96; Pulse 120; Resp 18; Temp 100.5; Pulse Ox 92% on R/A; mg2 22:34 Pulse Ox 89% on 2 lpm NC; mg2 22:34 BP 151 / 97; Pulse 104; Resp 18; Pulse Ox 96% on 2 lpm NC; mg2 23:15 Weight 34.52 kg; mg2 10/24 00:58 BP 152 / 93; Pulse 103; Resp 18; Temp 99.4; Pulse Ox 96% on R/A; mg2 MDM: 10/23 20:18 Patient medically screened. pr2 20:23 Differential diagnosis: gastritis, gastroesophageal reflux disease, pancreatitis. Data pr2 reviewed: vital signs, nurses notes. Counseling: I had a detailed discussion with the patient and/or guardian regarding: the historical points, exam findings, and any diagnostic results supporting the discharge/admit diagnosis, the presence of at least one elevated blood pressure reading (>120/80) during this emergency department visit, the need for outpatient follow up. Medical screen evaluation completed. EMTALA emergency medical condition absent. Response to treatment: the patient's symptoms have resolved after treatment. 10/23 20:23 Order name: Basic Metabolic Panel pr2 10/23 20:23 Order name: CBC with Diff pr2 10/23 20:23 Order name: Creatinine for Radiology pr2 10/23 20:23 Order name: Hepatic Function [facility] 10/23 20:23 Order name: Lipase [facility] 10/23 21:05 Order name: CBC with Automated Diff; Complete Time: 21:15 [facility] 10/23 21:22 Interpretation: Abnormal. [facility] 10/23 22:28 Order name: Basic Metabolic Panel; Complete Time: 22:54 [facility] 10/23 22:28 Order name: Liver (Hepatic) Function; Complete Time: 22:54 [facility] 10/23 22:28 Order name: Lipase; Complete Time: 22:54 [facility] 10/23 22:28 Order name: Creatinine (Radiology Only); Complete Time: 22:54 [facility] 10/23 23:08 Order name: Blood Culture Adult (2) [facility] 10/23 23:08 Order name: Urine Culture [facility] 10/23 23:29 Order name: Influenza Screen (a \T\ B) [facility] 10/23 23:46 Order name: Urine Dipstick--Ancillary (enter results) [facility] [place] 10/23 20:23 Order name: IV Saline Lock; Complete Time: 20:56 [facility] 10/23 20:23 Order name: Labs collected and sent; Complete Time: 20:56 [facility] 10/23 23:08 Order name: Chest Single View XRAY [facility] 10/23 23:08 Order name: Urine Dipstick-Ancillary (obtain specimen); Complete Time: 23:50 [facility] 10/23 23:08 Order name: CT Chest, Abdomen, Pelvis - W/Contrast: iv only [facility] 10/24 00:12 Order name: Urine Dipstick-Ancillary [facility] 10/24 00:22 Order name: Influenza Screen (A EDRI Administered Medications: 20:45 Drug: NS 0.9% 1000 ml Route: IV; Rate: 1 bolus; Site: right forearm; [facility] 10/24 00:55 Follow up: Response: No adverse reaction; IV Status: Completed infusion; IV Intake: mg2 1000ml 10/23 20:45 Drug: morphine 4 mg Route: IVP; Site: right forearm; [facility] 10/24 00:55 Follow up: Response: No adverse reaction; RASS: Alert and Calm (0) [facility] 10/23 20:45 Drug: Zofran 4 mg Route: IVP; Site: right forearm; [facility] 10/24 00:55 Follow up: Response: No adverse reaction [facility] 10/23 22:11 Drug: Tylenol 500 mg Route: PO; [facility] 10/24 00:54 Follow up: Response: No adverse reaction mg2 10/23 23:49 Drug: AtroVENT Aerosol 0.5 mg Route: Inhalation; mg2 10/24 00:53 Follow up: Response: No adverse reaction mg2 10/23 23:49 Drug: Pepcid 20 mg Route: IVP; Site: right forearm; mg2 10/24 00:53 Follow up: Response: No adverse reaction mg2 10/23 23:50 Drug: levofloxacin 500 mg Volume: 100 ml; Route: IVPB; Infused Over: 60 mins; Site: mg2 right forearm; 10/24 00:54 Follow up: Response: No adverse reaction; IV Status: Infusion continued upon admission mg2 10/23 23:50 Drug: SOLU-Medrol 2 mg/kg Route: IVP; Site: right forearm; mg2 10/24 00:53 Follow up: Response: No adverse reaction mg2 10/23 23:50 Drug: Xopenex 2.5 mg Route: Inhalation; mg2 10/24 00:53 Follow up: Response: No adverse reaction mg2 Disposition: 10/23/19 23:10 Hospitalization ordered by Rayne Shepard for Inpatient Admission. Preliminary diagnosis are Chronic obstructive pulmonary disease with (acute) exacerbation, Abdominal tenderness, Hypoxemia, Fever, unspecified. - Bed requested for Telemetry/MedSurg (Inpatient). - Status is Inpatient Admission. mg2 - Condition is Fair. - Problem is new. - Symptoms have improved. Signatures: Dispatcher [employer] EDMS Gavin Suarez RN RN Nick Hammer MD MD cha Garcia, Cindy, RN RN Rayne Rodriguez MD MD [facility] Jorge Alejandra RN RN mg2 Corrections: (The following items were deleted from the chart) 10/23 23:09 21:26 10/23/2019 21:26 Discharged to Home. Impression: Generalized abdominal pain. margarette Condition is Stable. Forms are Medication Reconciliation Form, Thank You Letter, Antibiotic Education, Prescription Opioid Use. Follow up: Private Physician; When: Tomorrow; Reason: Continuance of care. ma2 10/24 00:26 10/23 23:10 Hospitalization Ordered by Rayne Shepard MD for Inpatient Admission. cg Preliminary diagnosis is Chronic obstructive pulmonary disease with (acute) exacerbation; Abdominal tenderness; Hypoxemia; Fever, unspecified. Bed requested for Telemetry/MedSurg (Inpatient). Status is Inpatient Admission. Condition is Fair. Problem is new. Symptoms have improved. margarette 10/24 01:25 00:26 10/23/2019 23:10 Hospitalization Ordered by Rayne Shepard MD for Inpatient mg2 Admission. Preliminary diagnosis is Chronic obstructive pulmonary disease with (acute) exacerbation; Abdominal tenderness; Hypoxemia; Fever, unspecified. Bed requested for Telemetry/MedSurg (Inpatient). Status is Inpatient Admission. Condition is Fair. Problem is new. Symptoms have improved. cg
[2019-10-23] MEDS ORDERED: ACETAMINOPHEN 500 MG TAB PO PRN (23:27)
[2019-10-23] MEDS ORDERED: ONDANSETRON 4 MG/2 ML VIAL IV PRN (23:27)
[2019-10-23] MEDS ORDERED: Levofloxacin500mg IV 500 MG/100 ML BAG IV ONE (23:32)
[2019-10-23] MEDS ORDERED: FAMOTIDINE 20 MG/2 ML VIAL IV ONE (23:32)
[2019-10-23] MEDS ORDERED: LEVALBUTEROL 1.25 MG/3 ML NEB ONE (23:32)
[2019-10-23] MEDS ORDERED: METHYLPREDNISOLONE 125 MG INJ ONE (23:32)
[2019-10-23] MEDS ORDERED: IPRATROPIUM BROM 0.5MG/2.5ML ONE (23:32)
[2019-10-23] MEDS ORDERED: NA CHLORIDE 0.9% 1,000 ML IV SCH (23:45)
[2019-10-24 00:11] LABS: Urine Blood NEGATIVE (NEG); Urine Glucose NEGATIVE (NEG); Urine Protein NEGATIVE (NEG); Urine Specific Gravity 1.025 (1.005-1.030)
[2019-10-24] MEDS ORDERED: METHYLPREDNISOLONE 40 MG INJ IV SCH (01:00)
[2019-10-24] MEDS ORDERED: ALBUTEROL 2.5 MG/3 ML NEB SOL NEB SCH (02:00)
[2019-10-24] MEDS ORDERED: IPRATROPIUM BROM 0.5MG/2.5ML NEB SCH (02:00)
[2019-10-24] MEDS ORDERED: HYDROCODONE/CHLORPHEN 5 ML/OSYR PO PRN (02:25)
[2019-10-24] MEDS ORDERED: MORPHINE 2 MG/ML SYR IV PRN (02:25)
[2019-10-24] MEDS ORDERED: PIPER/TAZO/NS 3.375gm 3.375 GM/100 ML BAG IVPB SCH (04:30)
[2019-10-24 05:28] LABS: Absolute Lymphocytes (CBC) 0.4 K/uL (0.7-4.9); Basophils % 0.1 % (0-1.3); Hematocrit 36.2 % (36.0-45.0); MPV 7.4 fL (7.6-11.3); RBC Red Blood Cell Count 3.81 M/uL (3.86-4.86)
[2019-10-24] MEDS ORDERED: PIPERACIL/TAZO 3.375 GM VIAL IV ONE (05:29)
[2019-10-24] MEDS ORDERED: NA CHLORIDE 0.9% 100 ML ONE (05:36)
[2019-10-24 05:42] LABS: ALT/SGPT 11 U/L (12-78); AST/SGOT 17 U/L (15-37); Alkaline Phosphatase 70 U/L (45-117); BUN Blood Urea Nitrogen 5 mg/dL (7-18); Bicarbonate 28 mmol/L (21-32); Bilirubin Total 0.4 mg/dL (0.2-1.0); Glucose Level 160 mg/dL (74-106); Magnesium 1.6 mg/dL (1.8-2.4); NT PRO-BNP 206 pg/mL (<125); Phosphorus 3.2 mg/dL (2.5-4.9); Potassium 3.1 mmol/L (3.5-5.1); Protein, Total 7.6 g/dL (6.4-8.2); Sodium Level 134 mmol/L (136-145)
[2019-10-24 05:57] LABS: Blood Morphology Comment NOT SEEN (NOT SEEN); Platelet Estimate ADEQ
[2019-10-24 06:13] LABS: Urine Appearance CLEAR; Urine Bilirubin NEGATIVE (NEG); Urine Blood NEGATIVE (NEG); Urine Color YELLOW; Urine Glucose NEGATIVE (NEG); Urine Protein NEGATIVE (NEG); Urine Specific Gravity >=1.030 (1.005-1.030); Urine pH 5.5 (5.0-7.0)
[2019-10-24 06:18] LABS: Urine Microscopic Reflex NO UMIC
[2019-10-24] MEDS ORDERED: IPRATROPIUM BROM 0.5MG/2.5ML NEB PRN ×2 (07:49→18:00)
[2019-10-24] MEDS ORDERED: ALBUTEROL 2.5 MG/3 ML NEB SOL NEB PRN ×2 (07:51→18:00)
[2019-10-24] MEDS ORDERED: INFLUENZA VACCINE (for 3y+) 0.5 ML DOSE IMVAC ONE (08:00)
--- NOTE | 2019-10-24 08:28 | RAD REPORT ---
EXAM DESCRIPTION: RAD - Chest Single View - 10/24/2019 12:50 am CLINICAL HISTORY: COPD Chest pain. COMPARISON: Chest Single View dated 10/23/2019; Chest Single View dated 09/10/2019; Chest Abdomen Pelv is W Cont dated 10/24/2019 FINDINGS: Portable technique limits examination quality. Emphysematous changes are present throughout the lungs. The heart is normal in size. No displaced fra ctures. IMPRESSION: Prominent COPD.
[2019-10-24] MEDS: predniSONE 10 MG TAB PO SCH ×2 (08:59→20:27)
[2019-10-24] MEDS: DULERA 100/5 (MOMETASONE/FORMOTEROL) INHALER IH SCH ×2 (08:59→20:27)
[2019-10-24] MEDS: ENOXAPARIN 40 MG/0.4 ML SQ SCH (09:00)
--- NOTE | 2019-10-24 10:08 | RAD REPORT ---
EXAM DESCRIPTION: CT Chest, Abdomen and Pelvis With Intravenous Contrast CLINICAL HISTORY: The patient is 59 years old and is Female; Congestion;COPD TECHNIQUE: Axial computed tomography images of the chest, abdomen and pelvis with intravenous contra st. Sagittal and coronal reformatted images were created and reviewed. This CT exam was performed using one or more of the following dose reduction techniques: automated exposure control, adjustme nt of the mA and/or kV according to patient size, and/or use of iterative reconstruction technique. COMPARISON: No relevant prior studies available. FINDINGS: CHEST: LUNGS: The lungs are hyperinflated with diffuse centrilobular emphysematous change bilaterally. Minimal consolidation within the medial aspect of the right middle lobe is present. PLEURAL SPACE: Unremarkable. No significant effusion. No pneumothorax. HEART: No cardiomegaly. No pericardial effusion. MEDIASTINUM: The tracheobronchial tree is widely patent. ABDOMEN: LIVER: Unremarkable. No mass. GALLBLADDER AND BILE DUCTS: Few gallstones are present within the gallbladder. The gallbladder i s distended. PANCREAS: No ductal dilation. No mass. SPLEEN: A few splenic granuloma are present. ADRENALS: Unremarkable. No mass. KIDNEYS AND URETERS: Unremarkable. The kidneys enhance symmetrically. No obstructing renal or ur eteral calculus is seen. No hydronephrosis or hydroureter. No perinephric fluid or stranding. STOMACH AND BOWEL: The stomach is decompressed. The small bowel is relatively normal in caliber. Stool is present throughout colon. Scattered colonic diverticula are noted without surrounding infla mmation. There is no bowel obstruction. PELVIS: APPENDIX: The appendix is normal in caliber without surrounding inflammation. BLADDER: Unremarkable. No mass. REPRODUCTIVE: Unremarkable as visualized. CHEST, ABDOMEN and PELVIS: INTRAPERITONEAL SPACE: Unremarkable. No significant fluid collection. No free air. BONES/JOINTS: The bones are osteopenic. Chronic wedge deformities of T5 and T8 are present. Schm orl's nodes are noted throughout the thoracic and lumbar spine. SOFT TISSUES: The soft tissues are normal. VASCULATURE: Atherosclerosis of the vasculature is present. No aortic aneurysm. LYMPH NODES: Unremarkable. No enlarged lymph nodes. IMPRESSION: 1. Cholelithiasis without findings to suggest cholecystitis. 2. Colonic diverticulosis. 3. Normal appendix. Electronically signed by: Estrellita Loja MD 10/24/2019 1:15 AM CERTIFIED FRAUD EXAMINER Due to temporary technical issues with the PACS/Fluency reporting system, reports are being signed b y the in house radiologist as a courtesy to ensure prompt reporting. The interpreting radiologist is fully responsible for the content of the report.
--- NOTE | 2019-10-24 10:43 | P.PN ---
Subjective Date of Service: 10/24/19 Primary Care Provider: none Chief Complaint: Suicidal ideation Subjective: Other (Patient doing well at this time. Patient still suicidal. Patient is homeless. She was living at the [facility]. She was discharge from [facility] yesterday. She had increased anxiety related to this.) Physical Examination - Vital Signs Temperature: 98.2 F Blood Pressure: 132/81 Pulse: 90 Respirations: 18 Pulse Ox (%): 92 - Physical Exam General: Alert, In no apparent distress, Oriented x3, Cooperative, Other HEENT: Atraumatic Neck: Supple Respiratory: Clear to auscultation bilaterally, Normal air movement Cardiovascular: Normal pulses, Regular rate/rhythm Gastrointestinal: Normal bowel sounds, Soft and benign, Non-distended, No tenderness, No masses, No rebound, No guarding Neurological: Normal speech, Normal strength at 5/5 x4 extr, Normal tone, Abnormal affect (Increase anxiety) - Studies Laboratory Data (last 24 hrs) 10/24/19 05:10: Sodium 134 L, Potassium 3.1 L, BUN 5 L, Creatinine 0.66, Glucose 160 H, Phosphorus 3.2, Magnesium 1.6 L, Total Bilirubin 0.4, AST 17, ALT 11 L, Alkaline Phosphatase 70 10/24/19 05:10: WBC 6.0 D, Hgb 12.2, Hct 36.2, Plt Count 194 10/23/19 20:45: Creatinine 0.63 10/23/19 20:45: WBC 9.8 D, Hgb 13.2, Hct 39.1, Plt Count 209 10/23/19 20:45: Sodium 132 L, Potassium 4.2, BUN 10, Creatinine 0.63, Glucose 96 , Total Bilirubin 0.4, AST 22, ALT 13, Alkaline Phosphatase 83, Lipase 221 Microbiology Data (last 24 hrs): 10/23/19 23:47 Nasopharnyx Influenza Type A Antigen Screen - Final 10/23/19 23:47 Nasopharnyx Influenza Type B Antigen Screen - Final Medications List Reviewed: Yes Assessment & Plan Discharge Plan: Psychiatry Plan to discharge in: 24 Hours - Code Status/Comfort Care Code Status Assessed: Yes (Patient is full code) Physician Review Additional Text: Impression: Suicidal ideation suspect severe depression COPD exacerbation, mild Alcohol abuse Chronic pain Plan: Suicidal ideation suspect severe depression: Patient reported suicide ideation upon admission. Patient with increase anxiety. Suspect severe depression. Psychiatry has been consulted. Psychiatry recommends inpatient psychiatric transfer for further evaluation and treatment. Will provide medication for anxiety at this time. Patient medically stable for discharge to psychiatric facility. Will arrange for transfer to inpatient psychiatry facility. Will discuss further with nursing and social work to help with this. COPD exacerbation, mild: Will continue with prednisone taper. Will continue with COPD medication including Dulera and ProAir. Room-air saturations within normal range. Patient in no acute distress. Patient medically stable for discharge to psychiatric facility. Alcohol abuse: Patient admits to alcohol use. Alcohol level unremarkable. Chronic pain: CT scan unremarkable. No need for chronic pain medication at this time. Time Spent Managing Pts Care (In Minutes): 55
[2019-10-24] MEDS ORDERED: POTASSIUM CL SA 10 MEQ TAB PO ONE (10:54)
[2019-10-24] MEDS: TRAMADOL HCL 50 MG TAB PO PRN ×2 (13:02→20:29)
[2019-10-24 13:18] LABS: Barbiturates NEGATIVE (NEGATIVE); Benzodiazepines NEGATIVE (NEGATIVE); Cocaine NEGATIVE (NEGATIVE); METHAMPHETAM NEGATIVE (NEGATIVE); Methadone NEGATIVE (NEGATIVE); Opiates POSITIVE (NEGATIVE); Phencyclidine NEGATIVE (NEGATIVE); THC Cannibis NEGATIVE (NEGATIVE)
[2019-10-24] MEDS: ENSURE ENLIVE 237 ML CAN PO SCH ×2 (14:52→20:30)
[2019-10-24 16:51] VITALS: O2SAT 91
--- NOTE | 2019-10-24 17:13 | P.HP ---
Certification for Inpatient Patient admitted to: Inpatient With expected LOS: >2 Midnights Patient will require the following post-hospital care: None Practitioner: I am a practitioner with admitting privileges, knowledge of patient current condition, hospital course, and medical plan of care. Services: Services provided to patient in accordance with Admission requirements found in Title 42 Section 412.3 of the Code of Federal Regulations Patient History Date of Service: 10/23/19 Reason for admission: DYSPNEA History of Present Illness: PATIENT IS A 59-YEAR-OLD FEMALE WHO CAME THE HOSPITAL WITH SHORTNESS OF BREATH. PATIENT WITH A HISTORY OF COPD. PATIENT CAME IN WITH EXACERBATION AND WAS ADMITTED TO THE HOSPITAL FOR FURTHER WORKUP. PATIENT IS LIVING AT [facility]. SHE DOES NOT LIKE THE WAY SHE IS TREATED THERE. SHE HAS MULTIPLE PEOPLE THERE THAT HAVE BEEN SICK. SHE HAS A 50 PACK YEAR SMOKING HISTORY. SHE WAS USING INHALERS BUT DOES NOT HAVE THE ABILITY TO AFFORD THEM. SHE CAME TO THE HOSPITAL BECAUSE SHE WAS COUGHING CONGESTED AND HAVING FEVERS. IN THE EMERGENCY ROOM SHE WAS SHORT OF BREATH AND WORKUP REVEALS COPD EXACERBATION. SHE WILL BE ADMITTED TO THE HOSPITAL FOR INPATIENT HOSPITALIZATION. SHE ALSO MENTIONS BEING DEPRESSED. NURSE SPOKE TO HER AND SHE LATER IDENTIFY THAT SHE MAY BE SUICIDAL. SHE SAID SHE GOT KICKED OUT OF THE [facility] AND AFTERWARDS WAS FEELING LIKE SHE JUST WANTED TO JUMP IN FRONT OF A BUS. SHE IS INTERACTING AND SHE DOES NOT HAVE A FLAT AFFECT. BECAUSE OF HER VOICING THESE COMPLAINTS WILL PUT HER ON ONE-TO-ONE WATCH. Allergies No Known Allergies Allergy (Unverified 10/24/19 01:02) Home Medications: NK [No Home Meds] 10/24/19 - Past Medical/Surgical History Has patient received pneumonia vaccine in the past: No Diabetic: No -: COPD -: DEPRESSION -: Debridement Right calf-spider bite - Family History Father Family History: Reviewed- Non-Contributory - Social History Smoking Status: Current every day smoker Alcohol use: Yes CD- Drugs: Yes Caffeine use: Yes Place of Residence: [facility] Review of Systems 10-point ROS is otherwise unremarkable Physical Examination - Vital Signs Temperature: 98.0 F Blood Pressure: 111/67 Pulse: 88 Respirations: 18 Pulse Ox (%): 92 - Physical Exam General: Alert, In no apparent distress, Oriented x3 HEENT: Atraumatic, PERRLA, Mucous membr. moist/pink, EOMI, Sclerae nonicteric Neck: Supple, 2+ carotid pulse no bruit, No LAD, Without JVD or thyroid abnormality Respiratory: Diminished, Crackles/rales Cardiovascular: Regular rate/rhythm, Normal S1 S2 Gastrointestinal: Normal bowel sounds, Soft and benign, Non-distended, No tenderness Musculoskeletal: No clubbing, No swelling, No tenderness Integumentary: No rashes Neurological: Normal gait, Normal speech, Normal strength at 5/5 x4 extr, Normal tone, Sensation intact, Cranial nerves 3-12 intact, Normal affect Lymphatics: No axilla or inguinal lymphadenopathy - Studies Laboratory Data (last 24 hrs) 10/24/19 05:10: Sodium 134 L, Potassium 3.1 L, BUN 5 L, Creatinine 0.66, Glucose 160 H, Phosphorus 3.2, Magnesium 1.6 L, Total Bilirubin 0.4, AST 17, ALT 11 L, Alkaline Phosphatase 70 10/24/19 05:10: WBC 6.0 D, Hgb 12.2, Hct 36.2, Plt Count 194 10/23/19 20:45: Creatinine 0.63 10/23/19 20:45: WBC 9.8 D, Hgb 13.2, Hct 39.1, Plt Count 209 10/23/19 20:45: Sodium 132 L, Potassium 4.2, BUN 10, Creatinine 0.63, Glucose 96 , Total Bilirubin 0.4, AST 22, ALT 13, Alkaline Phosphatase 83, Lipase 221 Microbiology Data (last 24 hrs): 10/23/19 23:47 Nasopharnyx Influenza Type A Antigen Screen - Final 10/23/19 23:47 Nasopharnyx Influenza Type B Antigen Screen - Final Assessment & Plan - Problems (Diagnosis) (1) Acute exacerbation of COPD with asthma Current Visit: Yes Status: Acute (2) Depression Current Visit: Yes Status: Acute (3) Suicidal ideations Current Visit: Yes Status: Acute (4) Tobacco abuse Current Visit: Yes Status: Acute - Plan PLAN: 1. CONTINUE WITH IV ANTIBIOTICS 2. REPEAT CHEST X-RAY IN AM 3. WILL ORDER CT SCAN OF THE CHEST IF PNEUMONIA IS NOT IMPROVING 4. DC RESPIRATORY ISOLATION 5. CONTINUE WITH NEBS NEEDED 6. O2 PER PROTOCOL 7. CONTINUE WITH GENTLE HYDRATION 8. REPEAT LABS INCLUDING CBC AND RENAL FUNCTION IN A.M. 9 OUTPT FOLLOW-UP WITH PULMONARY 10. PSYCH EVALUATION 11. GI AND DVT PROPHYLAXIS Discharge Plan: Psychiatry Plan to discharge in: Greater than 2 days - Advance Directives Does patient have a Living Will: No Does patient have a Durable POA for Healthcare: No - Code Status/Comfort Care Code Status Assessed: Yes Code Status: Full Code Critical Care: No Time Spent Managing PTS Care (In Minutes): 45
[2019-10-24] MEDS: clonazePAM 0.5 MG TAB PO PRN (22:47)
[2019-10-25 05:03] VITALS: BMI 12.5
[2019-10-25] MEDS: DULERA 100/5 (MOMETASONE/FORMOTEROL) INHALER IH SCH (09:00)
[2019-10-25] MEDS: TRAMADOL HCL 50 MG TAB PO PRN (09:22)
[2019-10-25] MEDS: ENSURE ENLIVE 237 ML CAN PO SCH ×2 (09:23→15:07)
[2019-10-25] MEDS: predniSONE 10 MG TAB PO SCH (09:23)
[2019-10-25] MEDS: ENOXAPARIN 40 MG/0.4 ML SQ SCH (09:23)
--- NOTE | 2019-10-25 10:33 | P.PN ---
Subjective Date of Service: 10/25/19 Primary Care Provider: none Chief Complaint: DYSPNEA Subjective: Doing well, Other (Patient still reports some suicidal ideation. Vital signs stable.) Physical Examination - Vital Signs Temperature: 97.7 F Blood Pressure: 116/68 Pulse: 79 Respirations: 20 Pulse Ox (%): 92 - Physical Exam General: Alert, Cooperative HEENT: Atraumatic Neck: Supple Respiratory: Clear to auscultation bilaterally, Normal air movement Cardiovascular: Normal pulses, Regular rate/rhythm Gastrointestinal: Normal bowel sounds, Soft and benign, Non-distended, No rebound, No guarding Neurological: Normal speech, Normal strength at 5/5 x4 extr, Normal tone, Abnormal affect (Some depression noted) - Studies Medications List Reviewed: Yes Assessment & Plan Discharge Plan: Psychiatry Plan to discharge in: 24 Hours Physician Review Additional Text: Impression: Suicidal ideation suspect severe depression COPD exacerbation, mild Alcohol abuse Chronic pain Plan: Suicidal ideation suspect severe depression: Patient still reports some suicidal ideation. Patient seen and evaluated by psychiatry. Psychiatry recommends transfer to psychiatric facility to further evaluate and treat. Awaiting acceptance to facility. Patient medically stable at this time for transfer. COPD exacerbation, mild: Patient has done well. Continue prednisone taper. Will continue with COPD medication including Dulera and ProAir. Room-air saturations within normal range. Patient in no acute distress. Patient medically stable for discharge to psychiatric facility. Alcohol abuse: Patient admits to alcohol use. Alcohol level unremarkable. Alcohol cessation addressed in detail. Chronic pain: CT scan unremarkable. No need for chronic pain medication at this time. Time Spent Managing Pts Care (In Minutes): 55
[2019-10-25 16:19] VITALS: BP 148/74; TEMP 98.8
--- NOTE | 2019-10-25 16:39 | P.DS ---
Admission Date: 10/24/19 Discharge Date: 10/25/19 Primary Care Provider: none Disposition: TRANSFR TO OTHER-PSY/CD/REHAB Discharge Condition: GOOD Reason for Admission: DYSPNEA Consultations: PSYC Procedures: Medical Problem List: Suicidal ideation suspect severe depression COPD exacerbation, mild Alcohol abuse Chronic pain Brief History of Present Illness: 59-year-old female presented to the emergency room with shortness of breath. Patient found to have mild COPD exacerbation. Patient was also depressed and suicidal. Patient was admitted for further evaluation. Hospital Course: Patient presented with mild COPD exacerbation. She has done well with this. Patient medically stable at this time. At discharge she will continue with Dulera 2 puffs twice daily and Pro air 2 puffs 3 times a day as needed for shortness of breath. Patient will continue with prednisone 10 mg daily for 5 more days. Recommend follow up with a PCP or pulmonology to further address her condition. Patient also presented with suicide ideation. Patient likely with underlying severe depression. Patient recently was kicked out from the [facility]. Patient was evaluated by psychiatry. Psychiatry recommended inpatient psychiatric evaluation and treatment. Patient has been accepted to go to a psychiatric facility to continue her care. I have spoken to the ER physician at the facility and psychiatry. Patient will be transferred. Patient with history of alcohol abuse. Alcohol level was unremarkable. Alcohol cessation education provided. Patient with chronic pain. CT scan unremarkable. No need for chronic pain medication at this time. Vital Signs/Physical Exam: Temp Pulse Resp BP Pulse Ox 98.8 F 82 20 148/74 H 90 L 10/25/19 16:00 10/25/19 16:00 10/25/19 16:00 10/25/19 16:10/25/19 16:00 General: Alert, In no apparent distress, Cooperative, Other (Patient appears depressed) HEENT: Atraumatic Neck: Supple Respiratory: Clear to auscultation bilaterally, Normal air movement Cardiovascular: Normal pulses, Regular rate/rhythm Gastrointestinal: Normal bowel sounds, Soft and benign, Non-distended, No tenderness, No masses, No rebound, No guarding Musculoskeletal: No erythema, No tenderness, No warmth Integumentary: No tenderness/swelling, No erythema, No warmth, No cyanosis Neurological: Normal speech, Normal strength at 5/5 x4 extr, Normal tone Laboratory Data at Discharge: WBC 6.0 K/uL (4.3-10.9) D 10/24/19 05:10 Hgb 12.2 g/dL (12.0-15.0) 10/24/19 05:10 Hct 36.2 % (36.0-45.0) 10/24/19 05:10 Plt Count 194 K/uL (152-406) 10/24/19 05:10 Sodium 134 mmol/L (136-145) L 10/24/19 05:10 Potassium 3.1 mmol/L (3.5-5.1) L 10/24/19 05:10 BUN 5 mg/dL (7-18) L 10/24/19 05:10 Creatinine 0.66 mg/dL (0.55-1.3) 10/24/19 05:10 Glucose 160 mg/dL (74-106) H 10/24/19 05:10 Phosphorus 3.2 mg/dL (2.5-4.9) 10/24/19 05:10 Magnesium 1.6 mg/dL (1.8-2.4) L 10/24/19 05:10 Total Bilirubin 0.4 mg/dL (0.2-1.0) 10/24/19 05:10 AST 17 U/L (15-37) 10/24/19 05:10 ALT 11 U/L (12-78) L 10/24/19 05:10 Alkaline Phosphatase 70 U/L (45-117) 10/24/19 05:10 Lipase 221 U/L (73-393) 10/23/19 20:45 Home Medications: Albuterol Sulfate [Proair Hfa] 2 puff IH TID PRN #1 hfa.aer.ad 10/25/19 Mometasone/Formoterol [Dulera 100 Mcg/5 Mcg Inhaler] 2 puff IH BID #1 inhaler predniSONE [Deltasone*] 10 mg PO DAILY #5 tab 10/25/19 New Medications: Albuterol Sulfate [Proair Hfa] 2 puff IH TID PRN #1 hfa.aer.ad PRN Reason: Shortness Of Breath Mometasone/Formoterol [Dulera 100 Mcg/5 Mcg Inhaler] 2 puff IH BID #1 inhaler predniSONE [Deltasone*] 10 mg PO DAILY #5 tab Patient Discharge Instructions: Patient be transferred to inpatient psych to continue psychiatric evaluation and treatment. Patient presented with mild COPD exacerbation. She has done well with this. Patient medically stable at this time. At discharge she will continue with Dulera 2 puffs twice daily and Pro air 2 puffs 3 times a day as needed for shortness of breath. Patient will continue with prednisone 10 mg daily for 5 more days. Recommend follow up with a PCP or pulmonology to further address her condition. Patient also presented with suicide ideation. Patient likely with underlying severe depression. Patient recently was kicked out from the [facility]. Patient was evaluated by psychiatry. Psychiatry recommended inpatient psychiatric evaluation and treatment. Patient has been accepted to go to a psychiatric facility to continue her care. I have spoken to the ER physician at the facility and psychiatry. Patient will be transferred. Patient with history of alcohol abuse. Alcohol level was unremarkable. Alcohol cessation education provided. Patient with chronic pain. CT scan unremarkable. No need for chronic pain medication at this time. Diet: Regular Activity: Ad fredy Time spent managing pt's care (in minutes): 55
[2019-10-25] MEDS: clonazePAM 0.5 MG TAB PO PRN (17:25)
== END 2019-10-25 18:00 | DRG 191 ==
LOC: ER 19:50 → ERHOLD 23:41 → 2ND 10-24 01:17 → OBSVTOIN 10-24 07:46 → 3RD-ICU 10-24 10:50
PROVIDERS: ADMIT Hospitalist; ATTEND Family Medicine
DX: J44.1 Chronic obstructive pulmonary disease with (acute) exacerbation (principal); R45.851 Suicidal ideations; F32.9 Major depressive disorder, single episode, unspecified; F17.210 Nicotine dependence, cigarettes, uncomplicated; F10.10 Alcohol abuse, uncomplicated; G89.29 Other chronic pain; Z59.0 Homelessness
CPT/HCPCS: 36415; 71045; 71260; 74177; 80048; 80053; 80076; 80307; 80320; 81003; 83690; 83735; 83880; 84100; 84145; 85025; 87040; 87086; 87088; 87804; 90471; 96361; 96365; 96375; 99285; G0378; J1650; J2270; J2405; J2543; J2930; J7030; J7512; J7606; Q2035; Q9967

== ENCOUNTER 2019-11-24 22:21 | Inpatient (IN) | payer SELFPAY, OTHER ==
--- OUTSIDE RECORDS SUMMARY | 2019-11-24 22:24 | XMS REPORT ---
:1960 Author Organization [facility] Address [address] [place] [address] [place] [address] Care Team Providers Name Role Phone Unavailable Unavailable Unavailable Problems This patient has no known problems. Allergies, Adverse Reactions, Alerts This patient has no known allergies or adverse reactions. Medications This patient has no known medications. Results Test Description Test Time Test Comments Text Results Atomic Results Result Comments Chlamydia/GC Amplification 2019-11-07 17:12:26 Test Item Value Reference Range Comments Chlamydia trachomatis, KELECHI (test Negative Negative code=Chlamydia trachomatis, KELECHI) Neisseria gonorrhoeae, KELECHI (test Negative Negative Performed At: [facility] code=Neisseria gonorrhoeae, KELECHI) [id number] [place], [place] [id number] ariel Gonzales MD Ph:[phone] US Pelvis Comp w/Transvag if [id number] 15:08:31Patient: OMAYRA PAZ Date/Time11/03/201914 :52 CSTReason for ExamIrregular bleedingReportEXAM: PELVIC ULTRASOUNDINDICATION : Irregular bleedingCOMPARISON: CT dated November 01, 2019TECHNIQUE: Myles scale and color Doppler imaging of the pelvis was performed via transabdominal and endovaginal approaches.FINDINGS:The uterus is normal in echotexture measuring 3.8 x 3.0 x 2.0 cm. No focal fibroid. The endometrial stripe is homogenous measuring 0.2 cm in thickness.The right ovary is not visualized. The left ovary measures 1.4 x 1.1 x 1.9 cm. Arterial and venous flow is confirmed within both ovaries using spectral waveform analysis. No adnexal mass. There is a small amount of free fluid in the cul-de-sac.IMPRESSION:1. Normal sonographic appearance of the uterus and left ovary.2. Nonvisualization of the right ovary.LOCATION: R 16 Final Dictated by: MD Balderas Melanie CDictated DT/TM: 11/03/2019 3:06 pmSigned by: MD Balderas Melanie CSigned ( Electronic Signature): 11/03/2019 3:08 pmFollicle Stimulating Hormone [id number] 15:54:03 Test Item Value Reference Range Comments FSH (test code=FSH) 72.300 mIU/mL Male 1.5-12.4 mIU/mLFemale Follicular phase 3.5-12.5 mIU/mL Ovulation phase 4.7-21.5 mIU/mL Luteal phase 1.7-7.7 mIU/mL Post-menopausal 25.8-134.8 mIU/mL HCG Qualitative [id number] 15:41:09 Test Item Value Reference Range Comments HCG, Serum Qual (test code=HCG, Serum Qual) Negative Lot # (test code=Lot #) [id number] Expiration Dt (test code=Expiration Dt) 02/26/2021 Neg Control (test code=Neg Control) Negative Pos Control (test code=Pos Control) Positive Internal QC (test code=Internal QC) Acceptable Occult Blood, [id number] 15:06:35 Test Item Value Reference Range Comments Fecal Occult Blood (test code=Fecal Occult Blood) Negative Negative Neg Control (test code=Neg Control) Negative Pos Control (test code=Pos Control) Positive Lot # - Dev (test code=Lot # - Dev) [id number] Exp Dt - Dev (test code=Exp Dt - Dev) 01/2022 Lot # - Card (test code=Lot # - Card) [id number] Exp Dt - Card (test code=Exp Dt - Card) 09/2021 CT Abdomen and Pelvis w/o [id number] 15:12:37Patient: OMAYRA PAZ Date/Time11/01/201914 :57 CSTReason for ExamAbdominal painReportCT ABDOMEN AND PELVIS WITHOUT CONTRASTHISTORY: AbdominalpainCOMPARISON: None.TECHNIQUE: Axial images of the abdomen and pelvis were obtained without intravenous or oral contrast. Coronal and sagittal reformats were provided. One or more of the following dose reduction techniques were used: Automated exposure control, adjustment of the mA and/or kV according to patient size, and/or utilization of iterative reconstruction technique.FINDINGS:Lower thorax: Moderate emphysematous changes are noted at the lung bases.Hepatobiliary: Unremarkable. No intra or extrahepatic biliary ductal dilatation is identified.Gallbladder: The gallbladder is contracted. Numerous small gallstones are present.Spleen: Unremarkable.Pancreas: Unremarkable.Adrenals: Unremarkable.Kidneys/ureters: Unremarkable.Bowel: No abnormal bowel wall thickening or evidence of obstruction. The appendix is normal.Pelvic organs/bladder: There is mild nonspecific thickening of the urinarybladder.Vessels: Mild atherosclerotic calcification is noted.Peritoneum/Retroperitoneum: No ascites or free air is identified.Bones/soft tissues: No destructive bony lesions.IMPRESSION:1. Limited noncontrast exam.2. Cholelithiasis. If right upper quadrant pain is present, ultrasound follow-up wouldbe recommended.3. Nonspecific thickening of the urinary bladder wall. Correlate with urinalysis.LOCATION: R16 Final Dictated by: MD Fermin Adam FDictated DT/TM: 11/01/2019 3:08 pmSigned by: MD Fermin Adam FSigned (Electronic Signature): 11/01/2019 3:12 pmThyroid Stimulating [id number] 09:32:39 Test Item Value Reference Range Comments TSH (test code=TSH) 3.030 mIU/mL 0.270-4.200 Hemoglobin [id number] 09:27:55 Test Item Value Reference Range Comments Hemoglobin A1c (test 5.2 % 4.8-5.9 Non Diabetic 4.8-5.9%Diabetic code=Hemoglobin A1c) <7.0% Lipid [id number] 09:24:32 Test Item Value Reference Range Comments Cholesterol Total (test 153 mg/dL 0-200 RISK OF HEART DISEASEPublished code=Cholesterol Total) by [place] [employer] Analyte Optimal Borderline Increased RiskCHOL <200 200-239 >240TRIG <150 150-199 >200HDL Male >60 <40HDL Female >60 <50LDL <100 130-159 >160LDL Near optimal is 100-129 Triglycerides (test 105 mg/dL 9-200 code=Triglycerides) HDL (test code=HDL) 63 mg/dL 50-60 LDL (test code=LDL) 69 mg/dL 0-130 The equation being used in this calculation is LDL=(Chol - HDL) - (Trig / 5) VLDL (test code=VLDL) 21 mg/dL 5-40 The equation being used in this calculation is VLDL=Trig / 5 Chol/HDL (test 2.4 ratio 0.0-4.4 code=Chol/HDL) LDL/HDL Ratio (test 1 The equation being used in this code=LDL/HDL Ratio) calculation is LDL/HDL Ratio=LDL Calc/HDL Chol Urine Drug [id number] 23:52:49 Test Item Value Reference Range Comments Amphetamine Screen Ur (test Negative Negative code=Amphetamine Screen Ur) Barbiturate Screen Ur (test Negative Negative code=Barbiturate Screen Ur) Benzodiazepines Ur (test Negative Negative code=Benzodiazepines Ur) Cocaine Screen Ur (test Negative Negative code=Cocaine Screen Ur) U Methadone Scr (test code=U Negative Negative Methadone Scr) Opiate Screen Ur (test POSITIVE Negative code=Opiate Screen Ur) U PCP Scrn (test code=U PCP Negative Negative Scrn) Cannabinoid Screen Ur (test Negative Negative code=Cannabinoid Screen Ur) U TCA (test code=U TCA) Negative Negative The results of all drug screen tests are only preliminary. Clinical consideration and professional judgment should be applied to any drug of abuse test result, particularly when preliminary positive results are obtained. Please order a separate confirmatory test if desired. Urinalysis with Culture, if [id number] 23:37:00 Test Item Value Reference Range Comments UA Color (test code=UA Color) YELLO Yellow UA Appear (test code=UA CLEAR Clear Appear) UA pH (test code=UA pH) 9 UA Spec Grav (test code=UA 1.023 1.001-1.035 Spec Grav) UA Glucose (test code=UA NEG Negative Glucose) UA Bili (test code=UA Bili) NEG Negative UA Ketones (test code=UA NEG Negative Ketones) UA Blood (test code=UA Blood) NEG Negative UA Protein (test code=UA NEG Negative Protein) UA Urobilinogen (test code=UA 2 mg/dL >0.2 Urobilinogen) UA Nitrite (test code=UA NEG Negative Nitrite) UA Leuk Est (test code=UA Leuk NEG Negative Est) UA Micro Ind? (test code=UA Not Indicated Not Indicated Result created by rule Micro Ind?) [email or web address] Comprehensive Metabolic [id number] 21:50:36 Test Item Value Reference Range Comments Sodium Level (test code=Sodium Level) 137.0 mmol/L 135.0-145.0 Potassium Level (test code=Potassium Level) 4.4 mmol/L 3.5-5.1 Chloride Level (test code=Chloride Level) 94 mmol/L 98-105 CO2 (test code=CO2) 29 mmol/L 22-29 Anion Gap (test code=Anion Gap) 14 mmol/L 7-16 BUN (test code=BUN) 12.10 mg/dL 6.00-20.00 Creatinine Level (test code=Creatinine Level) 0.50 mg/dL 0.50-0.90 BUN/Creat Ratio (test code=BUN/Creat Ratio) 24 Glucose Level (test code=Glucose Level) 90 mg/dL 70-115 Calcium Level (test code=Calcium Level) 9.4 mg/dL 8.3-10.5 Alk Phos (test code=Alk Phos) 73 U/L 35-104 Bilirubin Total (test code=Bilirubin Total) 0.3 mg/dL 0.1-0.9 Albumin Level (test code=Albumin Level) 4.0 g/dL 3.5-5.2 Protein Total (test code=Protein Total) 7.7 g/dL 6.4-8.3 ALT (test code=ALT) 8 U/L 1-33 AST (test code=AST) 17 U/L 1-32 Globulin (test code=Globulin) 3.7 g/dL 2.9-3.1 A/G Ratio (test code=A/G Ratio) 1.1 ratio Alcohol [id number] 21:50:36 Test Item Value Reference Range Comments Ethanol Level (test <0.00 g/dL 0.00-0.01 Intoxicated 0.080 g/dL or more code=Ethanol Level) Ethanol Inst (test <0 code=Ethanol Inst) Comprehensive Metabolic [id number] 21:50:36 Test Item Value Reference Range Comments Sodium Level (test 137.0 mmol/L 135.0-145.0 code=Sodium Level) Potassium Level (test 4.4 mmol/L 3.5-5.1 code=Potassium Level) Chloride Level (test 94 mmol/L 98-105 code=Chloride Level) CO2 (test code=CO2) 29 mmol/L 22-29 Anion Gap (test 14 mmol/L 7-16 code=Anion Gap) BUN (test code=BUN) 12.10 mg/dL 6.00-20.00 Creatinine Level (test 0.50 mg/dL 0.50-0.90 code=Creatinine Level) BUN/Creat Ratio (test 24 code=BUN/Creat Ratio) Glucose Level (test 90 mg/dL 70-115 code=Glucose Level) Calcium Level (test 9.4 mg/dL 8.3-10.5 code=Calcium Level) Alk Phos (test code=Alk 73 U/L 35-104 Phos) Bilirubin Total (test 0.3 mg/dL 0.1-0.9 code=Bilirubin Total) Albumin Level (test 4.0 g/dL 3.5-5.2 code=Albumin Level) Protein Total (test 7.7 g/dL 6.4-8.3 code=Protein Total) ALT (test code=ALT) 8 U/L 1-33 AST (test code=AST) 17 U/L 1-32 Globulin (test 3.7 g/dL 2.9-3.1 code=Globulin) A/G Ratio (test code=A/G 1.1 ratio Ratio) eGFR AA (test code=eGFR >60 mL/min/1.73 m2 eGFR (estimated AA) Glomerular Filtration Rate) is an estimated value, calculated from the patient's serum creatinine using the MDRD equation. It is NOT the patient's actual GFR. The eGFR provides a more clinically useful measure of kidney disease than serum creatinine alone.This calculation takes sex and race into account, if the information is provided. If the race is not provided, and the patient is -[place], multiply by 1.212. If sex is not provided, and the patient is female, multiply by 0.742. Results for patients <18 years of age have not been validated by the MDRD study and should be interpreted with caution. eGFR Result Interpretation:eGFR > or=60 is in the Normal RangeeGFR < 60 may mean kidney diseaseeGFR < 15 may mean kidney failure Ranges recommended by the National Kidney Foundation, http://nkdep.nih.gov Comprehensive Metabolic [id number] 21:50:36 Test Item Value Reference Range Comments Sodium Level (test 137.0 mmol/L 135.0-145.0 code=Sodium Level) Potassium Level (test 4.4 mmol/L 3.5-5.1 code=Potassium Level) Chloride Level (test 94 mmol/L 98-105 code=Chloride Level) CO2 (test code=CO2) 29 mmol/L 22-29 Anion Gap (test 14 mmol/L 7-16 code=Anion Gap) BUN (test code=BUN) 12.10 mg/dL 6.00-20.00 Creatinine Level (test 0.50 mg/dL 0.50-0.90 code=Creatinine Level) BUN/Creat Ratio (test 24 code=BUN/Creat Ratio) Glucose Level (test 90 mg/dL 70-115 code=Glucose Level) Calcium Level (test 9.4 mg/dL 8.3-10.5 code=Calcium Level) Alk Phos (test code=Alk 73 U/L 35-104 Phos) Bilirubin Total (test 0.3 mg/dL 0.1-0.9 code=Bilirubin Total) Albumin Level (test 4.0 g/dL 3.5-5.2 code=Albumin Level) Protein Total (test 7.7 g/dL 6.4-8.3 code=Protein Total) ALT (test code=ALT) 8 U/L 1-33 AST (test code=AST) 17 U/L 1-32 Globulin (test 3.7 g/dL 2.9-3.1 code=Globulin) A/G Ratio (test code=A/G 1.1 ratio Ratio) eGFR AA (test code=eGFR >60 mL/min/1.73 m2 eGFR (estimated AA) Glomerular Filtration Rate) is an estimated value, calculated from the patient's serum creatinine using the MDRD equation. It is NOT the patient's actual GFR. The eGFR provides a more clinically useful measure of kidney disease than serum creatinine alone.This calculation takes sex and race into account, if the information is provided. If the race is not provided, and the patient is -[place], multiply by 1.212. If sex is not provided, and the patient is female, multiply by 0.742. Results for patients <18 years of age have not been validated by the MDRD study and should be interpreted with caution. eGFR Result Interpretation:eGFR > or=60 is in the Normal RangeeGFR < 60 may mean kidney diseaseeGFR < 15 may mean kidney failure Ranges recommended by the National Kidney Foundation, http://nkdep.nih.gov eGFR Non-AA (test >60.00 mL/min/1.73 eGFR (estimated code=eGFR Non-AA) m2 Glomerular Filtration Rate) is an estimated value, calculated from the patient's serum creatinine using the MDRD equation. It is NOT the patient's actual GFR. The eGFR provides a more clinically useful measure of kidney disease than serum creatinine alone.This calculation takes sex and race into account, if the information is provided. If the race is not provided, and the patient is -[place], multiply by 1.212. If sex is not provided, and the patient is female, multiply by 0.742. Results for patients <18 years of age have not been validated by the MDRD study and should be interpreted with caution. eGFR Result Interpretation:eGFR > or=60 is in the Normal RangeeGFR < 60 may mean kidney diseaseeGFR < 15 may mean kidney failure Ranges recommended by the National Kidney Foundation, http://nkdep.nih.gov Complete Blood Count with [id number] 21:36:27 Test Item Value Reference Range Comments WBC (test code=WBC) 6.1 x10 4.4-10.5 RBC (test code=RBC) 4.39 x10 3.75-5.20 Hgb (test code=Hgb) 13.8 g/dL 12.2-14.8 Hct (test code=Hct) 43.7 % 36.5-44.4 MCV (test code=MCV) 99.50 fL 80.00-100.00 MCHC (test code=MCHC) 31.60 g/dL 32.00-37.50 MCH (test code=MCH) 31.4 pg 27.0-32.5 RDW CV (test code=RDW CV) 12.2 % 11.5-14.5 Platelets (test 250.0 x10 140.0-440.0 code=Platelets) MPV (test code=MPV) 9.2 fL Slide Review (test code=Slide Auto Auto Result created by Review) [email or web address] nRBC (test code=nRBC) 0 NRBC Abs (test code=NRBC Abs) 0.00 x10 IPF (test code=IPF) 0 % Automated [id number] 21:36:27 Test Item Value Reference Range Comments Neutro Auto (test code=Neutro Auto) 73.6 % 36.0-70.0 Lymph Auto (test code=Lymph Auto) 19.6 % 12.0-44.0 Walker Auto (test code=Walker Auto) 6.1 % 0.0-11.0 Eos, Auto (test code=Eos, Auto) 0.2 % 0.0-7.0 Basophil Auto (test code=Basophil Auto) 0.2 % 0.0-2.0 Neutro Absolute (test code=Neutro Absolute) 4.5 x10 1.6-7.4 Lymph Absolute (test code=Lymph Absolute) 1.19 x10 .50-4.60 Walker Absolute (test code=Walker Absolute) .37 x10 .00-1.20 Eos Absolute (test code=Eos Absolute) 0.01 x10 0.00-0.74 Baso Absolute (test code=Baso Absolute) 0.01 x10 0.00-0.21 IG [id number] 21:36:27 Test Item Value Reference Range Comments IG (test code=IG) 0.3 % 0.0-5.0 IG Abs (test code=IG Abs) 0 x10
[2019-11-24] MEDS ORDERED: LEVALBUTEROL 1.25 MG/3 ML NEB ONE (22:39)
[2019-11-24] MEDS ORDERED: AZITHROMYCIN 250 MG TAB ONE (22:39)
[2019-11-24 22:46] LABS: Absolute Lymphocytes (CBC) 2.4 K/uL (0.7-4.9); Basophils % 1.1 % (0-1.3); Hematocrit 38.8 % (36.0-45.0); MPV 8.1 fL (7.6-11.3); RBC Red Blood Cell Count 4.18 M/uL (3.86-4.86)
[2019-11-24] MEDS ORDERED: NA CHLORIDE 0.9% 250 ML ONE (23:03)
[2019-11-24] MEDS ORDERED: AZITHROMYCIN 500 MG INJ IVPB ONE (23:03)
[2019-11-24 23:11] LABS: ALT/SGPT 31 U/L (12-78); Albumin 3.9 g/dL (3.4-5.0); Alkaline Phosphatase 74 U/L (45-117); BUN Blood Urea Nitrogen 17 mg/dL (7-18); Bicarbonate 28 mmol/L (21-32); Bilirubin Direct < 0.1 mg/dL (0-0.2); Bilirubin Total 0.3 mg/dL (0.2-1.0); CKMB Creatine Kinase MB 1.5 ng/mL (0.3-3.6); Creatine Phosphokinase 81 U/L (26-192); Glucose Level 94 mg/dL (74-106); Lipase 198 U/L (73-393); NT PRO-BNP 45 pg/mL (<125); Potassium 3.6 mmol/L (3.5-5.1); Protein, Total 9.1 g/dL (6.4-8.2); Sodium Level 134 mmol/L (136-145); Troponin (Emerg Dept Use Only) < 0.02 ng/mL (0.0-0.045)
[2019-11-24 23:12] LABS: AST/SGOT 31 U/L (15-37); Magnesium 1.5 mg/dL (1.8-2.4)
[2019-11-24] MEDS ORDERED: KETOROLAC 30 MG/ML INJ ONE (23:53)
[2019-11-25] LABS: Protime INR 1.06
--- NOTE | 2019-11-25 00:26 | ER ---
Nurse's Notes [facility] Name: Maria M Yang Age: 59 yrs Sex: Female : 1960 Arrival Date: 11/24/2019 Time: 22:25 Bed 6 Private MD: Diagnosis: Pneumonia due to other staphylococcus;Acute and chronic respiratory failure with hypoxia Presentation: 11/23 22:22 Coronavirus screen: Surgical mask placed on patient. Patient moved to private room, lw1 placed in contact and droplet isolation with eye protection until further assessment. Patient denies a cough. Patient reports shortness of breath or difficulty breathing. Patient denies measured and/or subjective temperature greater than 100.4F. Patient denies travel on a cruise ship or to a country the [facility] currently lists as an affected area. Patient denies contact with known and/or suspected case of COVID-19. Ebola Screen: Patient negative for fever greater than or equal to 101.5 degrees Fahrenheit, and additional compatible Ebola Virus Disease symptoms Patient denies exposure to infectious person. Patient denies travel to an Ebola-affected area in the 21 days before illness onset. No symptoms or risks identified at this time. Initial Sepsis Screen: Does the patient meet any 2 criteria? No. Patient's initial sepsis screen is negative. Risk Assessment: Do you want to hurt yourself or someone else? Patient reports no desire to harm self or others. 22:22 Method Of Arrival: EMS: [facility] lw1 22:22 Acuity: TYLER 3 lw1 22:22 Chief complaint: Patient states: choked on half a pill and became short of breath. lw1 11/24 01:30 Initial Sepsis Screen: Does the patient have a suspected source of infection? No. lw1 Patient's initial sepsis screen is negative. 02:25 Onset of symptoms was November 24, 2019 at 21:30. lw1 Triage Assessment: 00:41 General: Appears in no apparent distress. comfortable, Behavior is cooperative, lw1 appropriate for age, anxious. Respiratory: Onset: The symptoms/episode began/occurred today, GI: No deficits noted. : No deficits noted. Derm: No deficits noted. Musculoskeletal: No deficits noted. Historical: - Allergies: 11/23 22:22 No Known Allergies; lw1 - Home Meds: 11/24 00:53 duloxetine 30 mg oral cpDR 1 cap once daily [Active]; trazodone 150 mg Oral tab 1 tab lw1 DAILY [Active]; - PMHx: 11/23 22:22 Chronic pain; Hernia; vaginal bleeding.; lw1 - Immunization history:: Adult Immunizations up to date. - Social history:: Patient/guardian denies using alcohol, street drugs, The patient lives with family, Smoking status: Patient reports the use of cigarette tobacco products, smokes one-half pack cigarettes per day, Smoking status: Patient reports the use of cigarette tobacco products, smokes one-half pack cigarettes per day, The patient lives [facility]. - Family history:: not pertinent. - Code Status:: Full code. - Coronavirus screen:: The patient has NOT traveled to [place] in the past 14 days. The patient has NOT had contact with known/suspected case of Coronavirus? COVID 19 WAS ORDERED FOR THIS PATIENT . - Ebola Screening: : Patient negative for fever greater than or equal to 101.5 degrees Fahrenheit, and additional compatible Ebola Virus Disease symptoms Patient denies exposure to infectious person Patient denies travel to an Ebola-affected area in the 21 days before illness onset. Screenin/28 00:34 Abuse screen: Denies threats or abuse. Denies injuries from another. Nutritional lw1 screening: No deficits noted. Tuberculosis screening: No symptoms or risk factors identified. The patient has not been NPO before screening. The patient is currently on the following diet: reg The patient is alert, able to follow commands. The patient does not exhibit slurred or garbled speech The patient is not exhibiting difficulty speaking. The patient does not exhibit difficulty understanding words. The patient is unable to swallow own secretions without drooling or the need for suction. Patient tolerated one teaspoon of water. No drooling, immediate coughing, gurgling, or clearing of the throat was noted. PATIENT STATED THAT HER THROAT WAS SORE AND HURT AND SHE CHOKED ON HER MEDICATION AT HER RESIDENCE, REFUSED TO TAKE PILLS AT THIS TIME Provider notified of bedside swallow screening results: Rayne Rodriguez MD. Fall Risk IV access (20 points). 00:36 Sepsis Screening:. lw1 Assessment: 11/23 22:36 Reassessment: [facility] contacted for PUI number. bb 11/24 00:39 Pain: Complains of pain in neck. Neuro: No deficits noted. Cardiovascular: Rhythm is lw1 sinus tachycardia. Respiratory: Airway. Respiratory: Respiratory effort is labored, Breath sounds with wheezes bilaterally. GI: No deficits noted. : No deficits noted. EENT: Reports difficulty swallowing since CHOKING ON MEDICATION AT RESIDENCE TONIGHT. Derm: No deficits noted. Musculoskeletal: No deficits noted. Vital Signs: 11/23 22:22 BP 158 / 108; Pulse 90; Resp 22; Temp 98.5(TE); Pulse Ox 90% on R/A; Weight 45.36 kg; lw1 Height 5 ft. 2 in. (157.48 cm); Pain 5/10; 23:00 BP 148 / 91; Pulse 89; Resp 22; Pulse Ox 95% on 2 lpm NC; lw1 23:30 BP 153 / 111; Pulse 98; Resp 24; Pulse Ox 99% on 2 lpm NC; lw1 11/24 00:00 BP 113 / 78; Pulse 110; Resp 26; Pulse Ox 90% on R/A; lw1 01:30 BP 98 / 68; Pulse 104; Resp 26; Temp 98.5; Pulse Ox 97% on 2 lpm NC; Pain 0/10; lw1 11/23 22:22 Body Mass Index 18.29 (45.36 kg, 157.48 cm) lw1 Vitals: 00:00 Cardiac Rhythm Assessment Sinus tach. lw1 ED Course: 11/23 22:25 Patient arrived in ED. tl2 22:26 Rayne Rodriguez MD is Attending Physician. ma2 22:57 XRAY CXR (1 view) In Process Unspecified. EDMS 23:59 Miah Joseph, CLEVE is Primary Nurse. lw1 11/24 00:23 Triage completed. lw1 00:25 Rayne Shepard MD is Hospitalizing Provider. ma2 00:36 Patient has correct armband on for positive identification. Placed in gown. Bed in low lw1 position. Call light in reach. Side rails up X2. ekg monitor on. Pulse ox on. NIBP on. Door closed. Noise minimized. Visitors limited. Lights dimmed. Warm blanket given. Head of bed elevated. Turned to right side. 00:37 No provider procedures requiring assistance completed. Initial lab(s) drawn, by me, lw1 sent to lab. Flu and/or RSV swab sent to lab. Strep swab sent to lab. COVID 19. Initial Neb Treatment Given as ordered Patient was instructed and evaluated on procedure Patient tolerated procedure well without adverse effect. Inserted saline lock: 20 gauge in right hand, using aseptic technique. Blood collected. IV is patent, is intact, with fluids infusing freely, with good blood return. Oxygen administration via nasal cannula \T\ 2L/min. 00:54 Arm band placed on right wrist. EKG completed in triage. Results shown to MD. EKG lw1 completed in triage. Results shown to MD. EKG done per protocol. Performed by ED Staff. 02:24 Patient admitted, IV remains in place. intact, No redness/swelling at site. lw1 08:53 notified Lab of PUI number ([id number]). ms Administered Medications: 11/23 22:58 CANCELLED (inhalors ): Xopenex 1.25 mg Inhalation once [facility] 22:58 CANCELLED (Patient Eloped): AZITHromycin 500 mg PO once [facility] 11/24 00:04 Drug: AZITHromycin 500 mg Route: IVPB; Infused Over: 1 hrs; Site: right hand; lw1 01:00 Follow up: IV Status: Completed infusion; IV Intake: 500ml lw1 00:04 Drug: Albuterol 2.5 mg Route: Inhalation; lw1 02:20 Follow up: Response: No adverse reaction; Anxiety decreased; Wheezing diminished lw1 Intake: 01:00 IV: 500ml; Total: 500ml. lw1 Outcome: 00:25 Decision to Hospitalize by Provider. sc2 02:01 Admitted to Tele accompanied by tech, via stretcher, room 416, with oxygen, Report lw1 called to PSYCHIATRIC 02:01 Condition: improved 02:27 Patient left the ED. lw1 Signatures: Dispatcher [employer] EDRoslyn Almazan, RN RN Clara Ch ms, Taylor, RN RN tl2 Rayne Rodriguez MD MD ma2 Webster, LaDonna, RN RN lw1
--- NOTE | 2019-11-25 00:27 | EDPHYS ---
Physician Documentation [facility] Name: Maria M Yang Age: 59 yrs Sex: Female : 1960 Arrival Date: 11/24/2019 Time: 22:25 Bed 6 Private MD: ED Physician Rayne Rodriguez HPI: 11/24 00:22 This 59 yrs old Female presents to ER via Unassigned with complaints of ma2 Shortness Of Breath, Cough. 00:22 This 59 yrs old Female presents to ER via Unassigned with complaints of ma2 Shortness Of Breath, Cough. 00:22 The patient has shortness of breath at rest. Onset: The symptoms/episode began/occurred ma2 gradually, 1 day(s) ago. Associated signs and symptoms: Pertinent positives: Pertinent negatives: diaphoresis, dizziness. Severity of symptoms: At their worst the symptoms were mild in the emergency department the symptoms are unchanged. The patient has not experienced similar symptoms in the past. Historical: - Allergies: 11/23 22:22 No Known Allergies; lw1 - Home Meds: 11/24 00:53 duloxetine 30 mg oral cpDR 1 cap once daily [Active]; trazodone 150 mg Oral tab 1 tab lw1 DAILY [Active]; - PMHx: 11/23 22:22 Chronic pain; Hernia; vaginal bleeding.; lw1 - Immunization history:: Adult Immunizations up to date. - Social history:: Patient/guardian denies using alcohol, street drugs, The patient lives with family, Smoking status: Patient reports the use of cigarette tobacco products, smokes one-half pack cigarettes per day, Smoking status: Patient reports the use of cigarette tobacco products, smokes one-half pack cigarettes per day, The patient lives [facility]. - Family history:: not pertinent. - Code Status:: Full code. - Coronavirus screen:: The patient has NOT traveled to [place] in the past 14 days. The patient has NOT had contact with known/suspected case of Coronavirus? COVID 19 WAS ORDERED FOR THIS PATIENT . - Ebola Screening: : Patient negative for fever greater than or equal to 101.5 degrees Fahrenheit, and additional compatible Ebola Virus Disease symptoms Patient denies exposure to infectious person Patient denies travel to an Ebola-affected area in the 21 days before illness onset. ROS: 11/24 00:22 Constitutional: Negative for fever, chills, and weight loss. ma2 All other systems are negative. Exam: 00:22 Constitutional: This is a well developed, well nourished patient who is awake, alert, ma2 and in no acute distress. Head/Face: Normocephalic, atraumatic. Eyes: Pupils equal round and reactive to light, extra-ocular motions intact. Lids and lashes normal. Conjunctiva and sclera are non-icteric and not injected. Cornea within normal limits. Periorbital areas with no swelling, redness, or edema. ENT: Nares patent. No nasal discharge, no septal abnormalities noted. Tympanic membranes are normal and external auditory canals are clear. Oropharynx with no redness, swelling, or masses, exudates, or evidence of obstruction, uvula midline. Mucous membranes moist. Neck: Trachea midline, no thyromegaly or masses palpated, and no cervical lymphadenopathy. Supple, full range of motion without nuchal rigidity, or vertebral point tenderness. No Meningismus. Chest/axilla: Normal chest wall appearance and motion. Nontender with no deformity. No lesions are appreciated. Cardiovascular: Regular rate and rhythm with a normal S1 and S2. No gallops, murmurs, or rubs. Normal PMI, no JVD. No pulse deficits. Respiratory: Lungs have equal breath sounds bilaterally, clear to auscultation and percussion. No rales, rhonchi or wheezes noted. No increased work of breathing, no retractions or nasal flaring. Abdomen/GI: Soft, non-tender, with normal bowel sounds. No distension or tympany. No guarding or rebound. No evidence of tenderness throughout. MS/ Extremity: Pulses equal, no cyanosis. Neurovascular intact. Full, normal range of motion. Neuro: Awake and alert, GCS 15, oriented to person, place, time, and situation. Cranial nerves II-XII grossly intact. Motor strength 5/5 in all extremities. Sensory grossly intact. Cerebellar exam normal. Normal gait. Vital Signs: 11/23 22:22 BP 158 / 108; Pulse 90; Resp 22; Temp 98.5(TE); Pulse Ox 90% on R/A; Weight 45.36 kg; lw1 Height 5 ft. 2 in. (157.48 cm); Pain 5/10; 23:00 BP 148 / 91; Pulse 89; Resp 22; Pulse Ox 95% on 2 lpm NC; 1 23:30 BP 153 / 111; Pulse 98; Resp 24; Pulse Ox 99% on 2 lpm NC; 11/24 00:00 BP 113 / 78; Pulse 110; Resp 26; Pulse Ox 90% on R/A; 1 01:30 BP 98 / 68; Pulse 104; Resp 26; Temp 98.5; Pulse Ox 97% on 2 lpm NC; Pain 0/10; 11/23 22:22 Body Mass Index 18.29 (45.36 kg, 157.48 cm) [facility] MDM: 11/23 22:26 Patient medically screened. [facility] 11/24 00:24 Differential diagnosis: pneumonia, reactive airway disease. Data reviewed: vital signs, me2 nurses notes. Counseling: I had a detailed discussion with the patient and/or guardian regarding: the historical points, exam findings, and any diagnostic results supporting the discharge/admit diagnosis, the presence of at least one elevated blood pressure reading (>120/80) during this emergency department visit, the need for outpatient follow up, the need for further work-up and treatment in the hospital. 11/23 22:27 Order name: BMP [facility] 11/23 22:27 Order name: CBC with Diff [facility] 11/23 22:27 Order name: Ckmb [facility] 11/23 22:27 Order name: CPK [facility] 11/23 22:27 Order name: Hepatic Function [facility] 11/23 22:27 Order name: Lipase; Complete Time: 23:35 [facility] 11/23 22:27 Order name: Magnesium; Complete Time: 23:35 [facility] 11/23 22:27 Order name: NT PRO-BNP; Complete Time: 23:35 [facility] 11/23 22:27 Order name: PT-INR; Complete Time: 00:22 [facility] 11/23 22:27 Order name: Ptt, Activated; Complete Time: 00:22 [facility] 11/23 22:27 Order name: Troponin (emerg Dept Use Only); Complete Time: 23:35 [facility] 11/23 22:28 Order name: Flu; Complete Time: 23:35 [facility] 11/23 22:29 Order name: Basic Metabolic Panel; Complete Time: 23:35 EDMS 11/23 22:27 Order name: XRAY CXR (1 view) [facility] 11/23 22:27 Order name: EKG; Complete Time: 22:29 [facility] 11/23 22:27 Order name: Cardiac monitoring [facility] 11/23 22:27 Order name: EKG - Nurse/Tech [facility] 11/23 22:27 Order name: IV Saline Lock [facility] 11/23 22:29 Order name: CBC with Automated Diff; Complete Time: 23:35 [facility] 11/23 22:29 Order name: CKMB Creatine Kinase MB; Complete Time: 23:35 [facility] 11/23 22:29 Order name: Creatine Phosphokinase; Complete Time: 23:35 [facility] 11/23 22:29 Order name: Liver (Hepatic) Function; Complete Time: 23:35 [facility] 11/23 23:23 Order name: Misc. Lab Test [facility] 11/23 23:35 Order name: Strep; Complete Time: 00:22 [facility] 11/23 22:27 Order name: Labs collected and sent [facility] 11/23 22:27 Order name: O2 Per Protocol [facility] 11/23 22:27 Order name: O2 Sat Monitoring [facility] Administered Medications: 11/23 22:58 CANCELLED (inhalors ): Xopenex 1.25 mg Inhalation once [facility] 22:58 CANCELLED (Patient Eloped): AZITHromycin 500 mg PO once [facility] 11/24 00:04 Drug: AZITHromycin 500 mg Route: IVPB; Infused Over: 1 hrs; Site: right hand; lw1 01:00 Follow up: IV Status: Completed infusion; IV Intake: 500ml lw1 00:04 Drug: Albuterol 2.5 mg Route: Inhalation; lw1 02:20 Follow up: Response: No adverse reaction; Anxiety decreased; Wheezing diminished lw1 Disposition: 11/25/19 00:25 Hospitalization ordered by Rayne Shepard for Inpatient Admission. Preliminary diagnosis are Pneumonia due to other staphylococcus, Acute and chronic respiratory failure with hypoxia. - Bed requested for Telemetry/MedSurg (Inpatient). - Status is Inpatient Admission. lw1 - Condition is Stable. - Problem is new. - Symptoms are unchanged. Signatures: Dispatcher [employer] [facility] Moon Montgomery RN RN Rayne Rodriguez MD MD [facility] Joseph, Miah, RN RN lw1 Corrections: (The following items were deleted from the chart) 11/23 22:27 Xopenex 1.25 mg Inhalation once ordered. me2 me2 22:28 AZITHromycin 500 mg PO once ordered. me2 me2 11/24 00:25 Hospitalization Ordered by Rayne Shepard MD for Inpatient Admission. Preliminary mw diagnosis is Pneumonia due to other staphylococcus; Acute and chronic respiratory failure with hypoxia. Bed requested for Telemetry/MedSurg (Inpatient). Status is Inpatient Admission. Condition is Stable. Problem is new. Symptoms are unchanged. me2 11/25/2019 00:25 Hospitalization Ordered by Rayne Shepard MD for Inpatient lw1 Admission. Preliminary diagnosis is Pneumonia due to other staphylococcus; Acute and chronic respiratory failure with hypoxia. Bed requested for Telemetry/MedSurg (Inpatient). Status is Inpatient Admission. Condition is Stable. Problem is new. Symptoms are unchanged. mw
[2019-11-25] MEDS ORDERED: ACETAMINOPHEN 500 MG TAB PO PRN (02:15)
[2019-11-25] MEDS ORDERED: ONDANSETRON 4 MG/2 ML VIAL IV PRN (02:15)
[2019-11-25] MEDS ORDERED: ALBUTEROL INHALER 60 PUFF/8 GM IH PRN (02:22)
[2019-11-25] MEDS: NA CHLORIDE 0.9% 1,000 ML IV SCH ×2 (02:46→17:18)
[2019-11-25 03:35] VITALS: BMI 12.9
[2019-11-25 06:13] LABS: BUN Blood Urea Nitrogen 14 mg/dL (7-18); Bicarbonate 29 mmol/L (21-32); Glucose Level 92 mg/dL (74-106); Magnesium 1.5 mg/dL (1.8-2.4); Phosphorus 4.2 mg/dL (2.5-4.9); Potassium 3.4 mmol/L (3.5-5.1); Sodium Level 141 mmol/L (136-145)
[2019-11-25] MEDS ORDERED: Magnesium Sulfate 2gm IVPB 2 G/50 ML BAG IV ONE (06:18)
--- NOTE | 2019-11-25 07:37 | P.HP ---
Certification for Inpatient Patient admitted to: Inpatient With expected LOS: >2 Midnights Patient will require the following post-hospital care: None Practitioner: I am a practitioner with admitting privileges, knowledge of patient current condition, hospital course, and medical plan of care. Services: Services provided to patient in accordance with Admission requirements found in Title 42 Section 412.3 of the Code of Federal Regulations Patient History Date of Service: 11/25/19 Reason for admission: Patient admitted for shortness of breath and coughing. History of COPD History of Present Illness: Patient is a 59-year-old female came to the hospital with persistent coughing. She has a history of prolonged tobacco use since the age of 15. She has had prior CT and chest x-rays which have shown significant COPD changes. She presented to the hospital with the persisting cough but no fevers. In the emergency room she was found to be hypoxic with O2 sats 82% on room air. She does not wear home oxygen. She was admitted to the hospital for further evaluation. Because of the current endemic and because her symptoms were concerning she will be ruled out for COVID-19. Patient is currently on droplet precautions. Allergies No Known Allergies Allergy (Verified 11/25/19 03:33) Home Medications: Duloxetine HCl 30 mg PO DAILY 11/25/19 Trazodone [Desyrel] 150 mg PO DAILY 11/25/19 - Past Medical/Surgical History Has patient received pneumonia vaccine in the past: No Diabetic: No -: COPD -: DEPRESSION -: Debridement Right calf-spider bite - Family History Father Family History: Reviewed- Non-Contributory - Social History Smoking Status: Current every day smoker Alcohol use: No Caffeine use: Yes Place of Residence: [facility] Review of Systems 10-point ROS is otherwise unremarkable Physical Examination - Vital Signs Temperature: 97.8 F Blood Pressure: 105/75 Pulse: 89 Respirations: 18 Pulse Ox (%): 94 - Physical Exam General: Alert, In no apparent distress, Oriented x3 HEENT: Atraumatic, PERRLA, Mucous membr. moist/pink, EOMI, Sclerae nonicteric Neck: Supple, 2+ carotid pulse no bruit, No LAD, Without JVD or thyroid abnormality Respiratory: Diminished, Other (Coarse breath sounds) Cardiovascular: Regular rate/rhythm, Normal S1 S2, No murmurs Gastrointestinal: Normal bowel sounds, Soft and benign, Non-distended, No tenderness Musculoskeletal: No clubbing, No swelling, No tenderness Integumentary: No rashes Neurological: Normal gait, Normal speech, Normal strength at 5/5 x4 extr, Normal tone, Sensation intact, Cranial nerves 3-12 intact, Normal affect Lymphatics: No axilla or inguinal lymphadenopathy - Studies Laboratory Data (last 24 hrs) 11/24/19 22:45: PT 12.5, INR 1.06, APTT 39.3 H 11/24/19 22:30: WBC 5.1, Hgb 13.2, Hct 38.8, Plt Count 189 11/24/19 22:30: Sodium 134 L, Potassium 3.6, BUN 17, Creatinine 0.58, Glucose 94 , Magnesium 1.5 L, Total Bilirubin 0.3, AST 31, ALT 31, Alkaline Phosphatase 74 , Lipase 198 Microbiology Data (last 24 hrs): 11/24/19 22:15 Throat Group A Streptococcus Rapid Screen - Final 11/24/19 22:45 Nasopharnyx Influenza Type A Antigen Screen - Final 11/24/19 22:45 Nasopharnyx Influenza Type B Antigen Screen - Final Assessment & Plan - Problems (Diagnosis) (1) COPD with acute exacerbation Current Visit: Yes Status: Acute (2) Suspected COVID-19 virus infection Current Visit: Yes Status: Acute (3) Tobacco abuse Current Visit: No Status: Acute - Plan Plan: 1. At this time will plant controller Combivent inhaler, and I will give her 1 dose of IV steroids and will continue with supplemental oxygen. When she is ruled out for COVID-19, then we can continue nebulizer treatments as necessary. She states she stopped smoking yesterday. Will continue with nicotine patch. Pulmonary consultation. If patient is ruled out and her symptoms are improved and she is no longer requiring supplemental oxygen then we may be able to discharge her home. Discharge Plan: Home Plan to discharge in: Greater than 2 days - Advance Directives Does patient have a Living Will: No Does patient have a Durable POA for Healthcare: No - Code Status/Comfort Care Code Status Assessed: Yes Code Status: Full Code Critical Care: No Time Spent Managing PTS Care (In Minutes): 40
[2019-11-25] MEDS ORDERED: METHYLPREDNISOLONE 125 MG INJ IV ONE (08:00)
--- NOTE | 2019-11-25 08:49 | EKG ---
Test Date: 2019-11-24 Test Time: 23:20:21 Sr. Manager Marketing: MEASUREMENT RESULTS: Intervals: Rate: 100 PA: 148 QRSD: 70 QT: 386 QTc: 497 [place]: P: 70 PA: 148 QRS: 80 T: 73 INTERPRETIVE STATEMENTS: Normal sinus rhythm Cannot rule out Anterior infarct, age undetermined Abnormal ECG Compared to ECG 10/23/2019 01:23:16 Myocardial infarct finding now present Electronically Signed On 11-25-19 08:49:14 CDT by Higinio Carr
[2019-11-25] MEDS: ENOXAPARIN 40 MG/0.4 ML SQ SCH (08:52)
[2019-11-25] MEDS: KCL 20 MEQ/100 mL IVPB 20 MEQ/100 ML BAG IV SCH ×3 (09:00→11:00)
[2019-11-25] MEDS ORDERED: CEFTRIAXONE/SWI 1gm 1 GM/10 ML SYR IVP SCH (09:00)
[2019-11-25] MEDS ORDERED: CEFTRIAXONE 1 GM/NS 50 ML 1 GM/50 ML BAG IV SCH (09:00)
[2019-11-25] MEDS ORDERED: AZITHROMYCIN IV 500 MG in NA CHLORIDE 0.9% 250 ML IVPB SCH (09:00)
[2019-11-25] MEDS ORDERED: INFLUENZA VACCINE (for 3y+) 0.5 ML DOSE IMVAC ONE (09:00)
[2019-11-25] MEDS: HYDROCODONE/CHLORPHEN 5 ML/OSYR PO PRN ×2 (09:10→20:50)
[2019-11-25] MEDS: MORPHINE 2 MG/ML SYR IV PRN ×4 (10:21→23:46)
[2019-11-25] MEDS: NICOTINE 14 MG/PAT TD SCH (10:21)
[2019-11-25] MEDS ORDERED: POTASSIUM 25 MEQ EFFERV TAB PO ONE (12:00)
--- NOTE | 2019-11-25 12:13 | RAD REPORT ---
EXAM DESCRIPTION: RAD - Chest Single View - 11/24/2019 10:57 pm CLINICAL HISTORY: CONGESTION Chest pain. COMPARISON: Chest Single View dated 10/23/2019; Chest Single View dated 10/23/2019; Chest Single View dated 09/10/2019 FINDINGS: Portable technique limits examination quality. Prominent emphysematous changes are present throughout the lungs, unchanged since prior study. No foc al infiltrate detected. The heart is normal in size. Old right-sided rib fractures and ununited right clavicle fracture seen. IMPRESSION: Prominent COPD.
--- NOTE | 2019-11-25 12:19 | P.CNS ---
Date of Consult: 11/25/19 Chief Complaint: Possible COPD History of Present Illness: Patient is 59 years of age and history of drug or alcohol abuse admitted with dizziness and a fall denies any fever continues to smoke she is in a rehab unit complains of shortness of breath and coughing Allergies No Known Allergies Allergy (Verified 11/25/19 03:33) Home Medications: Duloxetine HCl 30 mg PO DAILY 11/25/19 Trazodone [Desyrel] 150 mg PO DAILY 11/25/19 - Past Medical/Surgical History Diabetic: No -: COPD -: DEPRESSION -: Debridement Right calf-spider bite - Family History Father Family History: Reviewed- Non-Contributory - Social History Smoking Status: Current every day smoker Alcohol use: No CD- Drugs: Yes Caffeine use: Yes Place of Residence: [facility] Review of Systems General: Weakness Respiratory: Cough, Shortness of Breath Physical Examination Temp Pulse Resp BP Pulse Ox 96.8 F 89 17 104/86 95 11/25/19 12:00 11/25/19 12:00 11/25/19 12:00 11/25/19 12:00 11/25/19 12:00 General: Alert, Oriented x3 Respiratory: Clear to auscultation bilaterally, Diminished Cardiovascular: No edema, Regular rate/rhythm Laboratory Data (last 24 hrs) 11/24/19 22:45: PT 12.5, INR 1.06, APTT 39.3 H 11/24/19 22:30: WBC 5.1, Hgb 13.2, Hct 38.8, Plt Count 189 11/24/19 22:30: Sodium 134 L, Potassium 3.6, BUN 17, Creatinine 0.58, Glucose 94, Magnesium 1.5 L, Total Bilirubin 0.3, AST 31, ALT 31, Alkaline Phosphatase 74, Lipase 198 - Problems (1) COPD (chronic obstructive pulmonary disease) Current Visit: Yes Status: Acute Plan: Patient is 59 years of age currently in drug and rehab unit for alcohol or drug abuse active smoker presumed history of COPD admitted with dizziness CONTINUE WITH IV FLUIDS NO PREDNISONE DC ANTIBIOTICS NO EVIDENCE OF INFECTION no fever no rmal white count chest x-ray shows COPD changes pro calcitonin level is negative ambulate possible discharge daily room air pulse ox Qualifiers: Emphysema type: unspecified
[2019-11-25 18:28] LABS: Potassium 4.5 mmol/L (3.5-5.1)
[2019-11-25] MEDS: predniSONE 20 MG TAB PO SCH (20:49)
[2019-11-26] MEDS: MORPHINE 2 MG/ML SYR IV PRN (04:11)
[2019-11-26] MEDS: NA CHLORIDE 0.9% 1,000 ML IV SCH (04:47)
[2019-11-26 06:13] LABS: Absolute Lymphocytes (CBC) 1.3 K/uL (0.7-4.9); Basophils % 0.2 % (0-1.3); Lymphocytes % 21.9 % (15.3-44.8); MPV 8.8 fL (7.6-11.3); RBC Red Blood Cell Count 3.77 M/uL (3.86-4.86)
[2019-11-26 06:34] LABS: ALT/SGPT 22 U/L (12-78); AST/SGOT 17 U/L (15-37); Albumin 3.3 g/dL (3.4-5.0); Alkaline Phosphatase 65 U/L (45-117); BUN Blood Urea Nitrogen 10 mg/dL (7-18); Bicarbonate 28 mmol/L (21-32); Bilirubin Total 0.2 mg/dL (0.2-1.0); Glucose Level 153 mg/dL (74-106); HDL Cholesterol 59 mg/dL (40-60); LDL Cholesterol, Calculated 51 (<130); Magnesium 1.8 mg/dL (1.8-2.4); Potassium 4.3 mmol/L (3.5-5.1); Protein, Total 7.8 g/dL (6.4-8.2); Sodium Level 139 mmol/L (136-145)
[2019-11-26] MEDS ORDERED: HYDROCODONE/APAP 5/325 MG TAB PO PRN (07:09)
[2019-11-26] MEDS: NICOTINE 14 MG/PAT TD SCH (07:49)
[2019-11-26] MEDS: ENOXAPARIN 40 MG/0.4 ML SQ SCH (07:50)
[2019-11-26] MEDS: predniSONE 20 MG TAB PO SCH (09:00)
[2019-11-26] MEDS ORDERED: MAGNESIUM SULFATE 1 gm IVPB 1 GM/100 ML BAG IV ONE (09:00)
--- NOTE | 2019-11-26 09:18 | EKG ---
Test Date: 2019-11-24 Test Time: 23:20:52 Senior Games Technician: MEASUREMENT RESULTS: Intervals: Rate: 95 SD: 152 QRSD: 76 QT: 382 QTc: 480 [place]: P: 72 SD: 152 QRS: 79 T: 70 INTERPRETIVE STATEMENTS: Normal sinus rhythm Cannot rule out Anterior infarct, age undetermined Abnormal ECG Compared to ECG 11/24/2019 23:20:21 No significant changes Electronically Signed On 11-26-19 09:16:35 CDT by Higinio Carr
[2019-11-26] MEDS: TRAMADOL HCL 50 MG TAB PO ONE ×2 (10:33→10:37)
--- NOTE | 2019-11-26 10:57 | P.PN ---
Subjective Date of Service: 11/26/19 stable. asking for pain medication for chronic back pain and L inguinal pain Physical Examination - Vital Signs Temperature: 97.1 F Blood Pressure: 150/93 Pulse: 89 Respirations: 18 Pulse Ox (%): 91 - Physical Exam General: Alert, In no apparent distress HEENT: Atraumatic, PERRLA, EOMI Neck: Supple, JVD not distended Respiratory: Clear to auscultation bilaterally, Normal air movement Cardiovascular: Regular rate/rhythm, Normal S1 S2 Gastrointestinal: Normal bowel sounds, No tenderness Musculoskeletal: No tenderness Integumentary: No rashes Neurological: Normal speech, Normal tone, Normal affect Lymphatics: No axilla or inguinal lymphadenopathy Assessment & Plan Physician Review Additional Text: (1) COPD with acute exacerbation Current Visit: Yes Status: Acute (2) Suspected COVID-19 virus infection Current Visit: Yes Status: Acute (3) Tobacco abuse Current Visit: No Status: Acute 4. L ear pain possible impaction. - Plan Stable. weaned off supplemental oxygen L ear pain- no otoscope available for exam. otic debrox will be considered. chronic pain- tramadol prn. Awaiting covid19 testing. rehab will not accept patient until neg test. continue droplet isolation pending result. will dc today once testing is negative. Discharge Plan: Rehab Plan to discharge in: today pending covid 19 test result
[2019-11-26 17:53] VITALS: BP 152/86; TEMP 97; O2SAT 92
--- NOTE | 2019-11-27 12:24 | P.DS ---
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 Patient denied any fever. She has a prolonged history of smoking was found to be hypoxic on presentation, 82% on room air. She was initiated in treatment for COPD exacerbation including supplemental oxygen, steroid and breathing treatments. Patient was isolated for suspected COVID19 and eventually, test was negative. She reported sore throat with left ear pain, nasal pharyngeal swab was positive for streptococcus. She has been initiated on oral antibiotics. She has a history of chronic pain. She currently resides at a rehab facility for alcohol and drug rehabilitation. Narcotics use were minimized while in the hospital. She remained hemodynamically stable for discharge. Vital Signs/Physical Exam: Temp Pulse Resp BP Pulse Ox 97.0 F 90 18 152/86 H 92 11/26/19 16:00 11/26/19 16:00 11/26/19 16:00 11/26/19 16:00 11/26/19 16:00 General: Alert, In no apparent distress HEENT: Atraumatic, PERRLA, Other (pharyngeal erythema), EOMI Neck: Supple, JVD not distended Respiratory: Clear to auscultation bilaterally, Normal air movement Cardiovascular: Regular rate/rhythm, Normal S1 S2 Gastrointestinal: Normal bowel sounds, No tenderness Musculoskeletal: No tenderness Integumentary: No rashes Neurological: Normal speech, Normal tone, Normal affect Lymphatics: No axilla or inguinal lymphadenopathy Laboratory Data at Discharge: WBC 6.0 K/uL (4.3-10.9) D 11/26/19 05:59 Hgb 11.8 g/dL (12.0-15.0) L 11/26/19 05:59 Hct 35.0 % (36.0-45.0) L 11/26/19 05:59 Plt Count 179 K/uL (152-406) 11/26/19 05:59 PT 12.5 SECONDS (9.5-12.5) 11/24/19 22:45 INR 1.06 11/24/19 22:45 APTT 39.3 SECONDS (24.3-36.9) H 11/24/19 22:45 Sodium 139 mmol/L (136-145) 11/26/19 05:59 Potassium 4.3 mmol/L (3.5-5.1) 11/26/19 05:59 BUN 10 mg/dL (7-18) 11/26/19 05:59 Creatinine 0.50 mg/dL (0.55-1.3) L 11/26/19 05:59 Glucose 153 mg/dL (74-106) H 11/26/19 05:59 Phosphorus 4.0 mg/dL (2.5-4.9) 11/26/19 05:59 Magnesium 1.8 mg/dL (1.8-2.4) 11/26/19 05:59 Total Bilirubin 0.2 mg/dL (0.2-1.0) 11/26/19 05:59 AST 17 U/L (15-37) 11/26/19 05:59 ALT 22 U/L (12-78) 11/26/19 05:59 Alkaline Phosphatase 65 U/L (45-117) 11/26/19 05:59 Triglycerides 78 mg/dL (<150) 11/26/19 05:59 Cholesterol 126 mg/dL (<200) 11/26/19 05:59 HDL Cholesterol 59 mg/dL (40-60) 11/26/19 05:59 Cholesterol/HDL Ratio 2.14 11/26/19 05:59 Lipase 198 U/L (73-393) 11/24/19 22:30 Home Medications: Duloxetine HCl 30 mg PO DAILY 11/25/19 Trazodone [Desyrel*] 150 mg PO DAILY 11/25/19 Amox/Clavulanate [Augmentin 875-125 Tab] 1 each PO BID #14 tab 11/26/19 Budesonide/Formoterol Fumarate [Symbicort 160-4.5 Mcg Inhaler] 1 puff IH BID #1 hfa.aer.ad 11/26/19 predniSONE [Prednisone*] 20 mg PO BID #10 tab 11/26/19 New Medications: Amox/Clavulanate [Augmentin 875-125 Tab] 1 each PO BID #14 tab Budesonide/Formoterol Fumarate [Symbicort 160-4.5 Mcg Inhaler] 1 puff IH BID #1 hfa.aer.ad predniSONE [Prednisone*] 20 mg PO BID #10 tab Diet: Regular Activity: Ad fredy Followup: Sly Kirkpatrick MD [ACTIVE - CAN ADMIT] - 1-2 Days NONE,NONE [Primary Care Provider] -
== END 2019-11-26 17:34 | DRG 192 ==
LOC: ER 22:21 → 4TH 11-25 02:04
PROVIDERS: ADMIT Hospitalist; ATTEND Hospitalist
DX: J44.1 Chronic obstructive pulmonary disease with (acute) exacerbation (principal); J02.0 Streptococcal pharyngitis; F17.210 Nicotine dependence, cigarettes, uncomplicated; G89.29 Other chronic pain; R09.02 Hypoxemia; F10.21 Alcohol dependence, in remission; F19.21 Other psychoactive substance dependence, in remission
CPT/HCPCS: 36415; 71045; 80048; 80053; 80061; 80076; 82550; 82553; 83605; 83690; 83735; 83880; 84100; 84132; 84145; 84484; 85025; 85610; 85730; 87040; 87081; 87804; 93005; 94760; 96365; 99285; J0456; J0696; J1650; J2270; J2930; J3475; J7030; J7512; U0001